=== PATIENT | female | born 1955 | race Caucasian/White ===

== ENCOUNTER 2023-12-12 19:47 | Inpatient (IN) | payer MEDICARE, SELFPAY ==
[2023-12-12] VITALS (11 sets, daily range): BP systolic 149–211; BP diastolic 69–97; BMI 29.1
--- NOTE | 2023-12-12 16:32 | EDRN ---
Dr. Lancaster in room w/ pt at this time.
--- NOTE | 2023-12-12 16:36 | ED.GENMED ---
History of Present Illness
General
Chief Complaint: Chest Pain
Source: patient and family
Exam Limitations: none
Time Seen by Provider: 12/12/23 16:20
Nursing documentation reviewed up to this point in time: agreed with
Travel History
Have you had any contact with someone who has COVID-19?: No
Do you have any symptoms of coronavirus? Fever > 100 degrees, chills, cough, shortness of breath, sore throat, loss of taste or smell, muscle aches, or headache?: No
History of Present Illness
History of Present Illness:
68 female no h/o cad presents with cp since 930 am
described at pressure across her chest into her right arm
no sob
no diaphoresis
no abd pain
has h/o elevated platelets-takes hydroxyurea
cardiology is dr toro
Past History
Past History
ED Past Medical History: None
ED Past Surgical History: None
Phy Exam
General Physical Exam
General Presentation: well appearing
General age: appears stated age
General Skin: warm
General Habitus: normal
General Mental: alert
General Hydration: appears well hydrated
Cardiovascular Exam
Cardiovascular Exam: regular rate/rhythm
Pulmonary Exam
Pulmonary Exam: lungs clear
Gastrointestinal Exam
Gastrointestinal Exam: non tender
Neurological Exam
Neurological Exam: oriented x3
Musculoskeletal Exam
Musculoskeletal Exam: no edema
Skin Exam
Skin Exam: warm/dry
Psychiatric Exam
Psychiatric Exam: normal mood/affect
Scores
Heart Score for Chest Pain Patients
STEMI patient?: No
History: Moderately Suspicious
ECG: Nonspecific Repolarization
Age: >/= 65 years
Risk Factors: 1 or 2 Risk Factors
Troponin: >1 - <3 x Normal Limit
Heart Score for Chest Pain Patients: 6
Heart Score Risk: 20.3% MACE over next 6 weeks
Course
Orders/Labs/Results
Orders:
Orders
12/12/23 13:40
Electrocardiogram (*1) Urgent
Reason for Study: Chest Pain
EKG- Treatment ONCE
12/12/23 16:50
Complete Blood Count/With Diff Urgent
Comprehensive Metabolic Panel Urgent
PTT Urgent
Comment: Obtain baseline before beginning heparin infusion if not already collected
Troponin I Urgent
12/12/23 18:01
Nitroglycerin Sublingual [Nitrostat (Sublingual)] 0.4 mg SL [id number] PRN
12/12/23 18:[address] Non Medication Order As Directed
Physician Order: PTT 6 hours after initial start of Heparin infusion
12/12/23 18:08
CR Chest Portable - 1 View Urgent
Comment:
Reason For Exam: cp
Reason Study Needs to be Portable: Patient Unstable
12/12/23 18:15
Heparin 38311 Units/250 ml 25,000 units in 250 ml IV PER PROTOCOL
Weight to be used for heparin protocol in kilograms (kg):: 72
Protocol:: Cardiac Tx/Acute Coronary
PTT Goal Range to be used:: PTT 73 to 111 seconds
Order type:: Initial
INITIAL Infusion Dose (UNITS/KG/hr) & then follow protocol:: 12 units/kg/hr
Infusion Dose in UNITS/hr & then follow protocol (UNITS/hr):: 850
INFUSION RATE in mL/hr & then follow protocol (mL/hr):: 8.5
PTT less than or equal to 64 seconds:: Increase rate by 200 units/hr (+ 2 mL/hr)
PTT 64.1 to 72.9 seconds:: Increase rate by 100 units/hr (+ 1 mL/hr)
PTT 73 to 111 seconds:: Target Range. No change in rate.
PTT 111.1 to 130.9 seconds:: Decrease rate by 100 units/hr (- 1 mL/hr)
PTT 131 to 199.9 seconds:: HOLD for 1 hr. Then decrease rate by 200 units/hr (- 2 mL/hr)
PTT greater than or equal to 200 seconds:: HOLD for 2 hrs & Notify Provider. Then decrease by 200 units/hr (-
2 mL/hr)
Lab follow-up:: Each change, PTT q6h until 2 consecutive are therapeutic. Then PTT
daily.
12/12/23 18:22
Heparin 4,000 units IV NOW STA
12/12/23 18:27
Heparin 98118 Units/250 ml 25,000 units in 250 ml .ROUTE .STK-MED
12/12/23 21:00
Troponin I Urgent
Abnormal Lab Results
12/12/23 12/12/23
16:50 17:53
MCH 31.1 H pg
(27.0-31.0)
Plt Count 589 H 10^3/uL
(130-400)
MPV 11.0 H fL
(7.4-10.4)
Absolute Neuts (auto) 7.3 H 10^3/uL
(1.4-6.5)
Lymphocytes % 17.0 L %
(20.5-51.1)
Potassium 5.3 H mmol/L
(3.5-5.1)
Glucose 175 H mg/dl
(70-99)
Calcium 10.4 H mg/dl
(8.4-10.2)
Troponin I 0.146 H* ng/ml
POC Glucose 159 H mg/dl
(70-99)
12/12/23 16:50
12/12/23 16:50
Vital Signs
Initial and Last Documented VS:
Initial Vital Signs
Temp Pulse Resp BP Pulse Ox
98.2 F 92 16 178/97 98
12/12/23 13:37 12/12/23 13:37 12/12/23 13:37 12/12/23 13:37 12/12/23 13:37
Last Documented Vital Signs
Temp Pulse Resp BP Pulse Ox
98.2 F 81 20 172/80 97
12/12/23 13:37 12/12/23 18:30 12/12/23 18:30 12/12/23 18:29 12/12/23 18:30
MDM/Problems Addressed
Differential Diagnosis Includes:
acs pancreatitis gerd pe dissection
MDM/Problems Addressed:
chest pain
Chronic conditions affecting care: Other
Acute Exacerbation and/or Progression of Chronic Illness: Other
*Radiology
Radiology exam reviewed: preliminary read by ED provider
*Pulse Oximetry
Patient hypoxic: no
*EKG
Interpreted by ED Provider?: Yes
Interpretation: abnormal
Comparison EKG: no changes
Heart Rate: 78
Rate: normal
Rhythm: sinus
Ischemia: non-specific ST changes
*Bitumen Plant Operator Interpretation
Rate: normal
Interpretation: normal
Heart Rate: 78
Rhythm: sinus
*Critical Care Note
Total Time (30-74mins, 75-104mins- exclusive of procedures): 30
Data Reviewed
Review of Other/Old Records Reveals: Records
Source: patient, records, family, physician and previous hospital records
Further Testing Considered But Not Given:
CT of the chest
Update Note
Update Note:
update
ekg noted
i was able to track down a prior-similar in appearance
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
6:10 PM troponin noted patient still with some pressure will give nitro, patient tells me that she cannot take any NSAIDs including aspirin because it gives her rectal bleeding
Consideration for PE is on the differential as well, apparently she has a hypercoagulable state, though she has allergies to IV contrast
The meantime was started on unfractionated heparin try to cool off with nitrates,
Reviewed with cardiology message sent to hospitalist
ED Attending Note
-
Portions of this chart may have been created with voice recognition software.� Occasional wrong word or��sound alike� substitutions may have occurred due to the inherent limitations of voice recognition software.
Discharge Plan
Departure
Patient Disposition: Admit
Date of Disposition: 12/12/23
Time of Disposition: 18:11
Admit to: IVU
Presentation/result/management discussed w/ accepting MD/DO: Hospitalist
Patient with high blood pressure during this ER visit?: Yes
Condition: Fair
Discharge Problem:
ACS (acute coronary syndrome)
Prescriptions:
No Action
metformin 500 mg Tablet
500 mg PO BID
hydroxyurea 500 mg Capsule
500 mg PO MOTUWETHFR
cetirizine [Aller-Jose] 10 mg Tablet
10 mg PO DAILY
albuterol sulfate [ProAir HFA] 90 mcg/actuation Hfa Aerosol Inhaler
2 puff INHALATION R Q6HPRN PRN (Reason: sob)
Humulin N Pen 100 unit/mL (3 mL) Insulin Pen
16 unit SC QPM
cholecalciferol (vitamin D3) [Vitamin D3] 25 mcg (1,000 unit) Tablet
25 mcg PO DAILY
mesalamine 1.2 gram Tablet,Delayed Release (Dr/Ec)
1.2 g PO BID
insulin glargine [Lantus Solostar U-100 Insulin] 100 unit/mL (3 mL) Insulin Pen
0 unit SC HS
Edarbi 40 mg Tablet
40 mg PO QPM
Flintstones Complete Tablet,Chewable
1 tab PO DAILY
Referrals:
Eugene Bustos MD [Family Provider] -
Interventions
Interventions:
*Risk Screen - Suicide Last Done: 12/12/23 16:50
*General Assessment Last Done: 12/12/23 16:50
*Neglect/Abuse Screening Last Done: 12/12/23 16:50
ED- Fall Risk Assessment Last Done: 12/12/23 16:50
*ED COVID-19 Vaccine History Last Done: 12/12/23 16:50
ED- Cardiac Assessment Last Done: 12/12/23 16:50
[2023-12-12 17:27] LABS: % Basophils 0.8 % (0-2); % Eosinophils 4.3 % (0-6); % Immature Granulocytes 0.4 % (0-0.5); % Monocytes 4.7 % (1.7-9.3); % Neutrophils 72.8 % (42.2-75.2); Absolute Basophils 0.1 10^3/uL (0-0.2); Absolute Eosinophils 0.4 10^3/uL (0-0.7); Absolute Lymphocytes 1.7 10^3/uL (1.2-3.4); Absolute Monocytes 0.5 10^3/uL (0.1-0.6); Absolute Neutrophils 7.3 10^3/uL (1.4-6.5); Hematocrit 40.9 % (37.0-47.0); Hemoglobin 13.7 g/dL (12.0-16.0); Mean Corp Hgb Conc. 33.5 g/dL (33.0-37.0); Mean Corpuscular Hgb 31.1 pg (27.0-31.0); Nucleated Red Blood Cells % 0 %; Platelet Count 589 10^3/uL (130-400); Red Cell Dist. Width 13.1 % (11.5-14.5)
[2023-12-12 17:55] LABS: Glucose - Point of Care 159 mg/dl (70-99)
[2023-12-12 17:57] LABS: ALT (SGPT) 27 U/L (0-35); AST (SGOT) 28 U/L (14-36); Albumin 4.3 g/dl (3.5-5.0); Alkaline Phosphatase 126 U/L (38-126); Blood Urea Nitrogen 17 mg/dl (7-17); Calcium 10.4 mg/dl (8.4-10.2); Carbon Dioxide 28 mmol/L (22-30); Chloride 99 mmol/L (98-107); Estimated Creatinine Clearance 61 ml/min; Glucose 175 mg/dl (70-99); Potassium 5.3 mmol/L (3.5-5.1); Sodium 139 mmol/L (135-145); Total Bilirubin 0.5 mg/dl (0.2-1.3); Total Protein 7.6 g/dl (6.3-8.2); Troponin I 0.146 ng/ml; eGFR > 60.00
--- NOTE | 2023-12-12 18:00 | EDRN ---
Troponin was 0.146. Pt will be moved to room #32 for cardiac monitoring when finished cleaning room. This RN informed Dr. Lancaster of troponin result.
[2023-12-12] MEDS: NITROSTAT (SUBLINGUAL) 0.400000000000000022 MG SL (18:38)
[2023-12-12] MEDS: HEPARIN 4000 UNITS IV (18:43)
[2023-12-12] MEDS: HEPARIN 25000 UNITS/250 ML IV (18:43)
[2023-12-12 18:52] LABS: APTT 32.7 Sec (23.4-35.0)
--- NOTE | 2023-12-12 19:35 | HPS.HSE ---
Addendum entered and electronically signed by Laureano Godinez MD 12/12/23 20:37:
CORRECTION- Patient never required nitro drip. Discontinued order.
Original Note:
Family Physician
-
Family Physician: Eugene Bustos
Chief Complaint
-
chest pain
History of Present Illness
68-year-old female with past medical history of heart murmur, thrombocytosis, clotting disorder, history of DVT with history of IVC filter, diabetes, diabetic retinopathy, asthma, hypertension, ulcerative colitis, presenting with chest pain since
9:30 AM. Pain described as pressure across her chest radiating into her arms bilaterally with numbness and tingling in her right hand and left upper arm. She also has radiation of the pain to her upper back. She denied any nausea or vomiting or
sweating or shortness of breath or abdominal pain.
She denies any history of heart attacks.
She used to be on aspirin but developed significant rectal bleeding so she stopped taking it.
Denies smoking or alcohol or any drug use.
Medical History
Past Medical History
Past Medical History: Reports Other (heart murmur, thrombocytosis, clotting disorder, history of DVT with history of IVC filter, diabetes, diabetic retinopathy, asthma, hypertension, ulcerative colitis)
Past Surgical History: Reports Other (cage in spine/neck, lower spine clam, hysterectomy, umbilical hernia, right knee scope)
Social History
Tobacco: Non-smoker
Alcohol: None
Drug: None
Family History
Family History: Not pertinent
Allergies / Home Medications
Allergies reflects when Allergies were last updated in [facility].
Home Medications with original date entered in [facility]
Allergy/Medication List:
Allergies
Allergy/AdvReac Type Severity Reaction Status Date / Time
acetaminophen [From Tylenol] Allergy Hives Verified 12/12/23 19:07
amlodipine Allergy Swelling Verified 12/12/23 19:07
azilsartan [From Edarbyclor] Allergy Hives Verified 12/12/23 19:07
azithromycin [From Zithromax] Allergy Unknown Verified 12/12/23 19:07
bee venom protein (honey bee) Allergy Anaphylaxis Verified 12/12/23 19:07
chlorthalidone Allergy Hives Verified 12/12/23 19:07
[From Edarbyclor]
codeine Allergy Unknown Verified 12/12/23 19:07
doxycycline Allergy Hives Verified 12/12/23 19:07
erythromycin base Allergy Unknown Verified 12/12/23 19:07
hydrochlorothiazide Allergy Hives Verified 12/12/23 19:07
Iodinated Contrast Media Allergy Unknown Verified 12/12/23 19:07
ketorolac [From Toradol] Allergy HEADACHE Verified 12/12/23 19:07
levofloxacin [From Levaquin] Allergy Swelling Verified 12/12/23 19:07
metoprolol Allergy Hives Verified 12/12/23 19:07
monosodium glutamate Allergy Anaphylaxis Verified 12/12/23 19:07
NSAIDS (Non-Steroidal Allergy Unknown Verified 12/12/23 19:07
Anti-Inflamma
Penicillins Allergy Unknown Verified 12/12/23 19:07
propoxyphene [From Darvon] Allergy Unknown Verified 12/12/23 19:07
ramipril [From Altace] Allergy Unknown Verified 12/12/23 19:07
valsartan [From Diovan] Allergy Hives Verified 12/12/23 19:07
Co-Q 10 Allergy Hives Uncoded 12/12/23 19:07
Home Medications
albuterol sulfate 90 mcg/actuation aerosol inhaler (ProAir HFA) 2 puff inhalation R Q6HPRN PRN sob 12/12/23
azilsartan medoxomil 40 mg tablet (Edarbi) 40 mg PO QPM 12/12/23
cetirizine 10 mg tablet (Aller-Jose) 10 mg PO DAILY 12/12/23
cholecalciferol (vitamin D3) 25 mcg (1,000 unit) tablet (Vitamin D3) 25 mcg PO DAILY 12/12/23
hydroxyurea 500 mg capsule 500 mg PO MOTUWETHFR 12/12/23
insulin NPH isoph U-100 human 100 unit/mL (3 mL) subcutaneous pen 16 unit SC QPM 12/12/23
insulin glargine 100 unit/mL (3 mL) subcutaneous pen (Lantus Solostar U-100 Insulin) 0 unit SC HS 12/12/23
mesalamine 1.2 gram tablet,delayed release 1.2 g PO BID 12/12/23
metformin 500 mg tablet 500 mg PO BID 12/12/23
pediatric multivitamin no.76 (Flintstones Complete chewable tablet) 1 tab PO DAILY 12/12/23
Review of Systems
-
History Source: Patient
A 12 point ROS was completed and negative except as noted: Yes
Constitutional: Reports No Symptoms
EENT: Reports No Symptoms
Respiratory: Reports See HPI
Cardiac: Reports See HPI
Abdomen/GI: Reports No Symptoms
: Reports No Symptoms
Musculoskeletal: Reports No Symptoms
Skin: Reports No Symptoms
Neurological: Reports No Symptoms
Endocrine: Reports No Symptoms
Hematologic/Lymphatic: Reports No Symptoms
Psych: Reports No Symptoms
Physical Exam
Vital Signs
Vital Signs
Temp Pulse Resp BP Pulse Ox
98.2 F 90 18 156/75 95
12/12/23 13:37 12/12/23 18:54 12/12/23 18:54 12/12/23 18:54 12/12/23 18:54
Physical Exam
General: Well Developed, Well Nourished and No Apparent Distress
HEENT: NormoCephalic, Moist mucous membranes and Atraumatic
Respiratory: Clear
Cardiac: S1/S2 and Regular Rhythm; No Murmur or Rub
GI: Soft, Non Tender, Non Distended and Normal Bowel Sounds; No Organomegaly
Rectal: Deferred by Provider
Musculoskeletal: No Clubbing, No Cyanosis and No Edema
Skin: No Rash
Neuro: Nonfocal/grossly intact
Laboratory Results
-
12/12/23 16:50
12/12/23 16:50
Laboratory Results
APTT 32.7 Sec (23.4-35.0) 12/12/23 16:50
Total Bilirubin 0.5 mg/dl (0.2-1.3) 12/12/23 16:50
AST 28 U/L (14-36) 12/12/23 16:50
ALT 27 U/L (0-35) 12/12/23 16:50
Alkaline Phosphatase 126 U/L (38-126) 12/12/23 16:50
Troponin I 0.146 ng/ml H* 12/12/23 16:50
Data Reviewed
-
Lab Data: Labs Reviewed by me
Old Records: Reviewed
Impression/Plan
-
IMPRESSION:
PLAN:
# NSTEMI
-EKG shows normal sinus rhythm, T wave inversions in lead V1
-Troponin of 0.146
-Trend troponins
-Check echo
-Heparin drip
-Nitroglycerin drip
-Hold off on aspirin given history of significant rectal bleeding on aspirin
-Cardiology consulted
History of heart murmur
# Hyperkalemia secondary to ARB
-Hold azilsartan
Essential hypertension
Essential thrombocytosis
-Continue hydroxyurea
History of clotting disorder
History of DVT status post IVC filter
Ulcerative colitis with history of rectal bleeding on aspirin
-Continue mesalamine
Type 2 diabetes
-Continue NPH/Humulin 16 units
-Insulin sliding scale
-Hold metformin
Diabetic retinopathy
Asthma
-Continue inhalers
Full code
DVT prophylaxis�heparin
Cardiac diet
[2023-12-12] MEDS: NON-FORMULARY ITEM 1.19999999999999996 GRAMS PO (20:57)
[2023-12-12 22:58] LABS: Glucose - Point of Care 175 mg/dl (70-99)
[2023-12-13] VITALS (8 sets, daily range): BP systolic 122–186; BP diastolic 54–89; BMI 27.8
[2023-12-13 00:24] LABS: Troponin I 0.477 ng/ml
[2023-12-13 01:24] LABS: % Basophils 0.8 % (0-2); % Immature Granulocytes 0.3 % (0-0.5); % Lymphocytes 29.1 % (20.5-51.1); % Monocytes 6.5 % (1.7-9.3); % Neutrophils 56.3 % (42.2-75.2); Absolute Basophils 0.1 10^3/uL (0-0.2); Absolute Eosinophils 0.5 10^3/uL (0-0.7); Absolute Lymphocytes 2.1 10^3/uL (1.2-3.4); Absolute Monocytes 0.5 10^3/uL (0.1-0.6); Absolute Neutrophils 4.1 10^3/uL (1.4-6.5); Hematocrit 39.2 % (37.0-47.0); Hemoglobin 13.6 g/dL (12.0-16.0); Mean Corp Hgb Conc. 34.7 g/dL (33.0-37.0); Mean Corpuscular Hgb 31.5 pg (27.0-31.0); Mean Corpuscular Volume 90.7 fL (81.0-99.0); Mean Platelet Volume 10.8 fL (7.4-10.4); Nucleated Red Blood Cells % 0 %; Platelet Count 517 10^3/uL (130-400); Red Blood Cell Count 4.32 10^6/uL (4.20-5.40); Red Cell Dist. Width 13.1 % (11.5-14.5); White Blood Cell Count 7.3 10^3/uL (4.8-10.8)
--- NOTE | 2023-12-13 01:35 | PTCARENOTE ---
Late note:Received from the ED at 0015. Heparin infusing at 850 units/hr. Denies any complaints of pain or discomfort.
[2023-12-13 01:37] LABS: ALT (SGPT) 27 U/L (0-35); AST (SGOT) 28 U/L (14-36); Albumin 4.4 g/dl (3.5-5.0); Alkaline Phosphatase 136 U/L (38-126); Blood Urea Nitrogen 19 mg/dl (7-17); Calcium 10.1 mg/dl (8.4-10.2); Carbon Dioxide 27 mmol/L (22-30); Chloride 103 mmol/L (98-107); Estimated Creatinine Clearance 53 ml/min; Glucose 168 mg/dl (70-99); Potassium 4.5 mmol/L (3.5-5.1); Sodium 136 mmol/L (135-145); Total Bilirubin 0.7 mg/dl (0.2-1.3); Total Protein 7.7 g/dl (6.3-8.2); eGFR > 60.00
[2023-12-13 02:08] LABS: Troponin I 0.603 ng/ml
--- NOTE | 2023-12-13 07:18 | CON.CAR ---
Consultation
Consultation Request
Date/Time Consultation Requested: Dec 13 2023
Date/Time Consultation Performed: Dec 13 2023
Requesting Provider: Hospitalist
Performing Provider: Dr Garg
Reason for Consultation: Chest pain
Medical History
-
Chief Complaint: Chest pain
History of Present Illness:
.
Zahida has a history of thrombocytosis, heterozygous for prothrombin gene mutation with previous history of DVT status post [place] filter, hypertension, hyperlipidemia, diabetes who developed chest pain yesterday. It was worse on the left side.
She also had epigastric pain with radiation to the back. Her symptoms started yesterday morning and progressed and worsened into the afternoon. She came into the emergency room for evaluation. Her first troponin was abnormal with subsequent
troponins rising, currently 0.6. She did have some relief with sublingual nitroglycerin.
She states she is been recommended aspirin but has not been able to take it due to rectal bleeding. She had some blood in the stool this morning. She also is already scheduled to see GI. She follows with a terminal gauger Dr. Kunal Mariscal and takes
hydroxyurea for thrombocytosis. She also has a dye allergy to contrast.
She was last seen in the cardiology office August 2023. At that time she had some atypical chest pain and was recommended stress testing but she declined this. Her last echo was June 2023 with EF 55 to 60% and mild LVH with no significant
valvular disease.
Past medical history:
IV contrast dye allergy
Diabetes mellitus
Hyperlipidemia
Hypertension
Heterozygous for prothrombin gene mutation
History DVT 1993 status post [place] filter
Thrombocytosis on hydroxyurea
History of ulcerative colitis
Asthma
Ulnar nerve surgery left
Diabetic retinopathy
Umbilical hernia
Hysterectomy
Right knee arthroplasty
Social History
Tobacco: Non-Smoker
Alcohol: Occasional
Drug: None
Personal:
Living: With Family
Employment: Retired (Retired voice data communications engineer)
Family History
Family History: Early CAD (Father had first IN 40s of heart failure at age 69 and was a heavy smoker)
Allergies / Home Medications
Allergy/AdvReac Type Severity Reaction Status Date / Time
acetaminophen [From Tylenol] Allergy Hives Verified 12/12/23 19:07
amlodipine Allergy Swelling Verified 12/12/23 19:07
azilsartan [From Edarbyclor] Allergy Hives Verified 12/12/23 19:07
azithromycin [From Zithromax] Allergy Unknown Verified 12/12/23 19:07
bee venom protein (honey bee) Allergy Anaphylaxis Verified 12/12/23 19:07
chlorthalidone Allergy Hives Verified 12/12/23 19:07
[From Edarbyclor]
codeine Allergy Unknown Verified 12/12/23 19:07
doxycycline Allergy Hives Verified 12/12/23 19:07
erythromycin base Allergy Unknown Verified 12/12/23 19:07
hydrochlorothiazide Allergy Hives Verified 12/12/23 19:07
Iodinated Contrast Media Allergy Unknown Verified 12/12/23 19:07
ketorolac [From Toradol] Allergy HEADACHE Verified 12/12/23 19:07
levofloxacin [From Levaquin] Allergy Swelling Verified 12/12/23 19:07
metoprolol Allergy Hives Verified 12/12/23 19:07
monosodium glutamate Allergy Anaphylaxis Verified 12/12/23 19:07
NSAIDS (Non-Steroidal Allergy Unknown Verified 12/12/23 19:07
Anti-Inflamma
Penicillins Allergy Unknown Verified 12/12/23 19:07
propoxyphene [From Darvon] Allergy Unknown Verified 12/12/23 19:07
ramipril [From Altace] Allergy Unknown Verified 12/12/23 19:07
valsartan [From Diovan] Allergy Hives Verified 12/12/23 19:07
Co-Q 10 Allergy Hives Uncoded 12/12/23 19:07
Medication Instructions Recorded Confirmed Type
albuterol sulfate 90 mcg/actuation 2 puff inhalation R Q6HPRN PRN sob 12/12/23 12/12/23 History
aerosol inhaler (ProAir HFA)
azilsartan medoxomil 40 mg tablet 40 mg PO QPM 12/12/23 12/12/23 History
(Edarbi)
cetirizine 10 mg tablet (Aller-Jose) 10 mg PO DAILY 12/12/23 12/12/23 History
cholecalciferol (vitamin D3) 25 25 mcg PO DAILY 12/12/23 12/12/23 History
mcg (1,000 unit) tablet (Vitamin
D3)
hydroxyurea 500 mg capsule 500 mg PO MOTUWETHFR 12/12/23 12/12/23 History
insulin NPH isoph U-100 human 100 16 unit SC QPM 12/12/23 12/12/23 History
unit/mL (3 mL) subcutaneous pen
insulin glargine 100 unit/mL (3 0 unit SC HS 12/12/23 12/12/23 History
mL) subcutaneous pen (Lantus
Solostar U-100 Insulin)
mesalamine 1.2 gram tablet,delayed 1.2 g PO BID 12/12/23 12/12/23 History
release
metformin 500 mg tablet 500 mg PO BID 12/12/23 12/12/23 History
pediatric multivitamin no.76 1 tab PO DAILY 12/12/23 12/12/23 History
(Flintstones Complete chewable
tablet)
Review of Systems
-
History Source: Patient
All other systems: Negative unless noted
Cardiac: Chest Pain
Abdomen/GI: Bloody Stools
Physical Exam
Vital Signs
Temp Pulse Resp BP Pulse Ox
97.7 F 89 18 122/65 96
12/13/23 04:47 12/13/23 06:00 12/13/23 04:47 12/13/23 04:40 12/13/23 04:47
Physical examination:
General: No acute distress, AAOX3
Neck: Negative JVD
Heart: Regular, Negative S3 positive S1/S2, Negative S4, No murmur
Lungs: CTA b/l, negative wheezes/rales/rhonchi
Abd: Positive BS, NT/ND, neg rebound/rigidity/guarding
Ext: Negative cyanosis/clubbing/edema
Neuro: nonfocal
Lab Results
12/13/23 01:14
12/13/23 01:14
Troponin I 0.603 ng/ml H* D 12/13/23 01:14
Impression / Plan
-
.
Impression:
Non-STEMI with troponin 0.6 and trending
History IV contrast dye allergy
Blood in stool with history of ulcerative colitis per patient
Diabetes mellitus II
Hyperlipidemia
Hypertension
Thrombocytosis on hydroxyurea
Heterozygous for prothrombin gene mutation
History DVT 1993 status post [place] filter
Asthma
Ulnar nerve surgery left
Diabetic retinopathy
History umbilical hernia
Hysterectomy
Plan:
Start IV heparin. Her EKG does not show ischemic changes.
She declined IV nitroglycerin. She did have some relief with sublingual nitro and has low-level chest discomfort. Start Nitropaste.
Continue to trend troponins until they peak
Check echocardiogram to evaluate for structural heart disease. Her last echo was unremarkable June 2023.
Discussed evaluation of her coronary anatomy with left heart cardiac catheterization. Discussed the procedures and risks. She is agreeable.
Check fasting lipids. LDL goal is at least less than 100. She states she did not tolerate statins or Zetia in the past. She could be considered for PCSK9 inhibitor therapy.
In light of her blood in the stool, would get a GI consultation as she stated she did not tolerate ASA therapy in the past. Would start aspirin therapy and evaluate for further bleeding. She may require dual antiplatelet therapy pending her
cardiac catheterization. She states she had ulcerative colitis and takes mesalamine which she states does not help her that much.
Consult hematology given her history of thrombocytosis and prothrombin gene mutation. This was also her request.
Diabetes management as per primary service.
Further recommendations are to follow pending clinical course and workday consultant input
Data Reviewed
-
EKG: Tracing Personally Visualized and interpreted
Labs: Labs Reviewed by me
Old Records: Reviewed
[2023-12-13] MEDS: THERAGRAN 1 TABLET PO (08:11)
[2023-12-13] MEDS: VITAMIN D3 (cholecalciferol) 25 MCG PO (08:11)
[2023-12-13] MEDS: ZYRTEC 10 MG PO (08:12)
[2023-12-13] MEDS: NON-FORMULARY ITEM 1.19999999999999996 GRAMS PO ×2 (08:12→21:19)
[2023-12-13] MEDS: NITRO-BID 1 INCH TOPICAL (08:16)
[2023-12-13 08:36] LABS: Glucose - Point of Care 173 mg/dl (70-99)
[2023-12-13] MEDS: HYDREA 500 MG PO (08:47)
--- NOTE | 2023-12-13 08:49 | CON.GI ---
Addendum entered and electronically signed by Clarice Odonnell MD 12/13/23 16:35:
I saw and examined the patient.
The [employer] OFFICER or PA's note was reviewed and I agree with the note.
Comment: 68-year-old female with history of what appears to be left-sided ulcerative colitis diagnosed in February 2023 when she presented with some diarrhea and rectal bleeding by Dr. Scott at [place], currently maintained on mesalamine tablets 1.2
g twice a day presenting with chest pain and elevated troponin with abnormal EKG suggesting non-ST elevation PA. Given history of ulcerative colitis, GI consult called and to evaluate for risk of bleeding with possible antiplatelet/anticoagulation.
No recent increased symptoms, currently reports 2-3 formed and small bowel movements sometimes with some mucus and blood, has not taken mesalamine enemas for almost more than a month, she only took 10 days prior to that and consistently taking
mesalamine tablets. No flareup requiring hospital visit. No other active GI symptoms. Elevated fecal calprotectin in the 2000 range in October 2023. Flexible sigmoidoscopy February 2023 as per patient with left-sided colitis and prior to that
couple of years ago her for colonoscopy and had polyps removed. She has been getting colonoscopies every 3 years with family history of colon cancer in her mother. She also has history of DVT, IVC filter placement, not on anticoagulation.
-History of ulcerative colitis without any active flare at this time though recent mucus and blood with bowel movements without significant diarrhea.
No evidence of anemia
Continue mesalamine 1.2 g oral tablet twice a day and will add mesalamine enema every night.
Agree with CRP, ESR, fecal calprotectin and also celiac panel given questionable history of celiac disease.
Patient currently on IV heparin drip without any significant increase in bleeding.
Continue to monitor H&H.
Okay to continue cardiology evaluation, if there is any significant active bleeding, we could use steroids to treat flare ups.
She has appointment with our office, Dr. Contreras coming up in December. Suggested keeping on the appointment. Eventual colonoscopy once she is able to from a cardiac standpoint as an outpatient.
Will follow
Original Note:
Consultation
-
Date/Time Consultation Requested: 12/13/23
Date/Time Consultation Performed: 12/13/23 @ 09:30
Requesting Provider: Dr. Garcia
Performing Provider: TIAN Khan; Dr. Odonnell
Reason for Consultation: rectal bleeding eval, pre-cardiac cath
Medical History
Chief Complaint / HPI
Chief Complaint: chest pain
History of Present Illness:
The pt is a pleasant 68 yo female with a PMH significant for newly diagnosed Ulcerative colitis on oral mesalamine, thrombocytosis on hydroxyurea followed by hematology Dr. Mariscal, hx DVT x2 with placement of IVC filter, HTN, HLD, DM2, asthma,
heterozygous prothrombin gene previously on ASA but self discontinued due to rectal bleeding, who presented to the ER with complaints of chest pain. On admission noted with elevated troponins and an abnormal EKG showing T wave changes consistent
with NSTEMI. She had received SL nitro and symptoms improved. She was started on IV heparin pending eventual cardiac catheterization. We are being asked to evaluate for risk of bleeding with need for possible long-term antiplatelet therapy. The
patient reports that she had been having bloody stools intermittently the last year and underwent evaluation with Dr. Scott who is her gastrointestinal doctor out of [place]. She had previously had colonoscopies in which she had benign polyps
removed, but had not been told she had any inflammatory bowel disease in the past. She underwent a sigmoidoscopy in February of last year in which she was told she had a 'raw intestine with possible ulcers' consistent with ulcerative colitis. She had
been subsequently started on mesalamine 2.4 mg daily which she has been on since that time. She was advised to also use mesalamine enemas as well which did improve her rectal bleeding. She also notes that she had stopped her aspirin which she has
been off since May which also helped with the bleeding as well, although this was not recommended by her class b truck driver Dr. Mariscal as she is followed by him due to her history of thrombocytosis and heterozygous prothrombin gene mutation. She is on
hydroxyurea for this thrombocytosis. She notes that she does have chronic abdominal symptoms, with occasional cramping which is associated with bowel movements. She notes that she does have intermittent bleeding usually with only mild bleeding.
She does note intermittent constipation but mostly has formed small bowel movements. She can have several bowel movements in a day depending on the day. She does not take medications for constipation. She notes that her symptoms are particularly
sensitive to her diet, and has been on a low FODMAP diet as advised by her GI physician. She does also note she takes daily fiber supplements with Benefiber or Citrucel. She notes a history of internal hemorrhoids in which she reports she had
banding in the past. She also notes that she was told she had celiac disease upon biopsy in the past as well but is unclear if this is a confirmed diagnosis. She reports that her symptoms have been improved since being off of aspirin and currently
denies any bleeding at this time. She reports family history significant for mother who had colon cancer in her 60s. She denies any significant alcohol use. She otherwise denies any unintentional weight loss, significant reflux, vomiting, nausea,
dysphagia, odynophagia, melena, hematemesis, fevers, or chills. Minimal records available in our outpatient [facility] system but noted with a fecal calprotectin in October of this past year that was 2460. Routine labs on admission with no significant
anemia with a hemoglobin of 13.6. Noted with rising troponin levels otherwise no significant lab findings. She is NPO pending further cardiac work-up.
Past Medical History
Past Medical History: Asthma, HTN, Hypercholesterolemia and Other (Thrombocytosis on hydroxyurea, heterozygous prothrombin gene mutation, history of DVT x 2 with filter placement, history of newly diagnosed ulcerative colitis in February 2023, ?celiac
disease)
Past Surgical History: Gynecological (Hysterectomy), Orthopedic (Right knee arthroscopy x 2) and Other (Ulnar nerve surgery, umbilical hernia)
Social History
Tobacco: Non-Smoker
Alcohol: None
Drug: None
Personal:
Living: With Family
Family History
Family History: Other (Mother who had colon cancer in her 60s)
Allergies / Home Medications
Allergy/AdvReac Type Severity Reaction Status Date / Time
acetaminophen [From Tylenol] Allergy Hives Verified 12/12/23 19:07
amlodipine Allergy Swelling Verified 12/12/23 19:07
azilsartan [From Edarbyclor] Allergy Hives Verified 12/12/23 19:07
azithromycin [From Zithromax] Allergy Unknown Verified 12/12/23 19:07
bee venom protein (honey bee) Allergy Anaphylaxis Verified 12/12/23 19:07
chlorthalidone Allergy Hives Verified 12/12/23 19:07
[From Edarbyclor]
codeine Allergy Unknown Verified 12/12/23 19:07
doxycycline Allergy Hives Verified 12/12/23 19:07
erythromycin base Allergy Unknown Verified 12/12/23 19:07
hydrochlorothiazide Allergy Hives Verified 12/12/23 19:07
Iodinated Contrast Media Allergy Unknown Verified 12/12/23 19:07
ketorolac [From Toradol] Allergy HEADACHE Verified 12/12/23 19:07
levofloxacin [From Levaquin] Allergy Swelling Verified 12/12/23 19:07
metoprolol Allergy Hives Verified 12/12/23 19:07
monosodium glutamate Allergy Anaphylaxis Verified 12/12/23 19:07
NSAIDS (Non-Steroidal Allergy Unknown Verified 12/12/23 19:07
Anti-Inflamma
Penicillins Allergy Unknown Verified 12/12/23 19:07
propoxyphene [From Darvon] Allergy Unknown Verified 12/12/23 19:07
ramipril [From Altace] Allergy Unknown Verified 12/12/23 19:07
valsartan [From Diovan] Allergy Hives Verified 12/12/23 19:07
Co-Q 10 Allergy Hives Uncoded 12/12/23 19:07
Medication Instructions Recorded
albuterol sulfate 90 mcg/actuation 2 puff inhalation R Q6HPRN PRN sob 12/12/23
aerosol inhaler (ProAir HFA)
azilsartan medoxomil 40 mg tablet 40 mg PO QPM 12/12/23
(Edarbi)
cetirizine 10 mg tablet (Aller-Jose) 10 mg PO DAILY 12/12/23
cholecalciferol (vitamin D3) 25 25 mcg PO DAILY 12/12/23
mcg (1,000 unit) tablet (Vitamin
D3)
hydroxyurea 500 mg capsule 500 mg PO MOTUWETHFR 12/12/23
insulin NPH isoph U-100 human 100 16 unit SC QPM 12/12/23
unit/mL (3 mL) subcutaneous pen
insulin glargine 100 unit/mL (3 0 unit SC HS 12/12/23
mL) subcutaneous pen (Lantus
Solostar U-100 Insulin)
mesalamine 1.2 gram tablet,delayed 1.2 g PO BID 12/12/23
release
metformin 500 mg tablet 500 mg PO BID 12/12/23
pediatric multivitamin no.76 1 tab PO DAILY 12/12/23
(Flintstones Complete chewable
tablet)
Review of Systems
-
History Source: Patient
Constitutional: Reports No Symptoms
EENT: Reports No Symptoms
Respiratory: Reports No Symptoms
Cardiac: Reports Chest Pain
Abdomen/GI: Reports Bloody Stools
: Reports No Symptoms
Musculoskeletal: Reports No Symptoms
Skin: Reports No Symptoms
Neurological: Reports No Symptoms
Vital Signs
Temp Pulse Resp BP Pulse Ox
97.8 F 96 18 123/71 96
12/13/23 07:59 12/13/23 08:16 12/13/23 08:03 12/13/23 08:16 12/13/23 08:05
Physical Exam
Exam
General: Well Developed, Well Nourished, No Apparent Distress and Comfortable
HEENT: Normocephalic, Anicteric and Atraumatic
Respiratory: Clear
Cardiac: S1/S2 and Regular Rhythm
Breast: Deferred by me
GI: Soft, Non Tender, Non Distended and Normal Bowel Sounds
Musculoskeletal: No Edema
Skin: Warm and Dry
Neuro: Awake and Alert
Psych: Calm
Results
WBC 7.3 10^3/uL (4.8-10.8) 12/13/23 01:14
Hgb 13.6 g/dL (12.0-16.0) 12/13/23 01:14
Hct 39.2 % (37.0-47.0) 12/13/23 01:14
MCV 90.7 fL (81.0-99.0) 12/13/23 01:14
Plt Count 517 10^3/uL (130-400) H 12/13/23 01:14
Absolute Neuts (auto) 4.1 10^3/uL (1.4-6.5) 12/13/23 01:14
APTT 40.0 Sec (23.4-35.0) H 12/13/23 01:14
Sodium 136 mmol/L (135-145) 12/13/23 01:14
Potassium 4.5 mmol/L (3.5-5.1) 12/13/23 01:14
Chloride 103 mmol/L (98-107) 12/13/23 01:14
Carbon Dioxide 27 mmol/L (22-30) 12/13/23 01:14
BUN 19 mg/dl (7-17) H 12/13/23 01:14
Creatinine 0.9 mg/dL (0.6-1.0) 12/13/23 01:14
Calcium 10.1 mg/dl (8.4-10.2) 12/13/23 01:14
Total Bilirubin 0.7 mg/dl (0.2-1.3) 12/13/23 01:14
AST 28 U/L (14-36) 12/13/23 01:14
ALT 27 U/L (0-35) 12/13/23 01:14
Alkaline Phosphatase 136 U/L (38-126) H 12/13/23 01:14
Diagnostic Image Results:
12/12/23 CXR: Normal
Prior GI Procedures:
EGD: within the last 2 years at [place], ?celiac diagnosis per pt (report not available to me)
Colonoscopy: within the last 2 years at [place], hx colon polyps per pt (report not available to me)
Flex sig February 2023 per pt, dx with UC 'colon ulceration and inflammation' (report not available to me)
Assessment / Plan
-
The pt is a pleasant 68 yo female with a PMH significant for newly diagnosed Ulcerative colitis on oral mesalamine, thrombocytosis on hydroxyurea followed by hematology Dr. Mariscal, hx DVT x2 with placement of IVC filter, HTN, HLD, DM2, asthma,
heterozygous prothrombin gene previously on ASA but self discontinued due to rectal bleeding, who presented to the ER with complaints of chest pain. Noted with elevated troponins and EKG changes consistent with NSTEMI. Improved chest pain with
sublingual nitro. Currently in no acute distress with no complaints of pain. She notes being recently diagnosed with ulcerative colitis last February with flex sig with Dr. Scott out of [place]. Currently with no significant bleeding but does
report prior mild bleeding with aspirin therapy. Recent fecal calprotectin greater than 2000 indicating likely unmanaged IBD. No significant anemia.
Problem list:
-Intermittent rectal bleeding, hx recently dx UC on mesalamine
-?celiac disease
-NSTEMI
-Thrombocytosis on hydroxyurea following hematology
-Heterozygous prothrombin gene mutation
-History of DVT
-History of rectal bleeding on aspirin
-Elevated troponins
Other pertinent medical history:
-Hypertension
-Type 2 diabetes
-Asthma
-Hyperlipidemia
Recommendations:
-Etiology of intermittent rectal bleeding likely secondary to unmanaged ?ulcerative colitis with recent fecal calprotectin above 2000 v other. Records unavailable at this time but will request them to review her endoscopic evaluation and prior
workup.
-Will review case with Dr. Odonnell but did discuss with the patient risk versus benefits of being on aspirin or other antiplatelet therapy with ulcerative colitis as she likely will need this from a cardiac standpoint. There is increased risk of GI
bleeding with antiplatelet therapy with a dx of ulcerative colitis.
-Would continue oral mesalamine for now but may need to increase dose or adjust therapy based on her symptoms/further work-up.
-May need endoscopic evaluation to determine therapy escalation/significance of inflammation. Will review timing with Dr. Odonnell/cardiology.
-No anemia or reported rectal bleeding to suggest active bleeding. Monitor stools/for bleeding.
-She has an appointment with Dr. Contreras outpatient which she should keep
-Check celiac panel, CRP, ESR, fecal calpro
-NPO as per cardiology but when eating should be on gluten free, low residue diet
-Will follow
Data Reviewed
-
Old Records: Reviewed
-
-
Thank you for consultation and allowing me to participate in the patient's care. Please call the ton container filler GI physician during the after hours with any questions or concerns.
--- NOTE | 2023-12-13 08:50 | CON.ONC ---
Impression
Impression
Impression:
Non-STEMI with elevated troponin
Essential Thrombocytosis on hydroxyurea
Heterozygous for prothrombin gene mutation
History DVT x 2, and 1992 status post Eamon filter
Ulcerative colitis per patient
Diabetes mellitus II
Hyperlipidemia
Hypertension
Asthma
Plan
Plan
Patient is currently on IV heparin. For cardiac catheterization.
Regarding essential thrombocytosis, continue hydroxyurea to maintain platelet count around 300,000 - 600,000. Currently she is taking hydroxyurea 500 mg daily -.
Ideally she would take low-dose aspirin although the patient has declined because of rectal bleeding. GI has been consulted. She believes rectal bleeding is related to underlying ulcerative colitis.
Obviously, if she has cardiac stenting, she may require antiplatelet therapy to prevent IntraStent thrombosis.
Regarding full therapeutic anticoagulation with history of heterozygote prothrombin 01169 gene mutation, this is not an absolute indication for anticoagulation and she has done well 17 years. At this point, particular with history of rectal
bleeding, I would not start anticoagulation simply based on this genetic diagnosis even though she has been on anticoagulation for almost 20 years and her previous multimedia developer was uncomfortable and her stopping it. The anticoagulation was stopped
AGAINST MEDICAL ADVICE at that time because of skin thinning.
For now we will standby and follow with you. Continue to monitor CBC with attention to platelet count on hydroxyurea. Await cardiac catheterization and decisions regarding stents.
Patient History
History of Present Illness
Heme Consultation
Requesting Provider: Cardiology Dr. Garg
Performing Provider: Hematology Dr Wilder
Reason for Consultation: ET on hydroxyurea and Prothrombin 25928 gene mutation
CC: Chest pain
HPI: Patient is a 68-year-old female who follows with Dr. Brett Mariscal at [facility] with history of essential thrombocytosis on hydroxyurea 500 mg daily. 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
after her 3rd COVID Moderna vaccination. Her platelet count is maintained approximately 250,000 - 350,000 although she states in October her platelet count kelechi to over 700,000. She also has history of prothrombin 57444 heterozygous gene mutation
and has history of DVT on 2 separate occasions back in the . She was treated with anticoagulation for almost 20 years until she stopped Coumadin 2006 because of issues with skin thinning. This was AGAINST MEDICAL ADVICE of her multimedia developer
(previously Dr. Sellers). An IVC filter was placed in 2006. Since that time, she has not had any DVT or PE despite not being on anticoagulation. She was supposed to be taking aspirin but also was noncompliant with aspirin because it causes rectal
bleeding. She has underlying ulcerative colitis. She attributes the aspirin associated rectal bleeding as a complication of having ulcerative colitis.
Patient was admitted with chest pain and suspected acute coronary syndrome with non-STEMI CA. We are asked to see her because of the potential need for aspirin and regarding the thrombocytosis.
Past-Medical/Surgical History
PMH:
IV contrast dye allergy
Diabetes mellitus
Hyperlipidemia
Hypertension
Heterozygous prothrombin gene mutation
History DVT x 2 and 1992 status post Eamon filter
MPL + Essential Thrombocytosis on hydroxyurea
Ulcerative colitis ? - per patient
*Not on aspirin because of rectal bleeding
Asthma
PSH:
Ulnar nerve surgery left
Diabetic retinopathy
Umbilical hernia
Hysterectomy
Right knee arthroplasty
Social History
Tobacco: Non-Smoker
Alcohol: Occasional
Drug: None
Personal:
Living: With Family
Employment: Retired (Retired electrical power engineer)
Family History: Early CAD (Father had first CA 40s of heart failure at age 69 and was a heavy smoker)
Multiple drug allergies. List attached.
Patient Medication
Medication Instructions Recorded Confirmed Last Taken Type
albuterol sulfate 90 mcg/actuation 2 puff inhalation R Q6HPRN PRN sob 12/12/23 12/12/23 Unknown History
aerosol inhaler (ProAir HFA)
azilsartan medoxomil 40 mg tablet 40 mg PO QPM 12/12/23 12/12/23 12/11/23 History
(Edarbi)
cetirizine 10 mg tablet (Aller-Jose) 10 mg PO DAILY 12/12/23 12/12/23 12/12/23 History
cholecalciferol (vitamin D3) 25 25 mcg PO DAILY 12/12/23 12/12/23 12/12/23 History
mcg (1,000 unit) tablet (Vitamin
D3)
hydroxyurea 500 mg capsule 500 mg PO MOTUWETHFR 12/12/23 12/12/23 12/12/23 History
insulin NPH isoph U-100 human 100 16 unit SC QPM 12/12/23 12/12/23 12/11/23 History
unit/mL (3 mL) subcutaneous pen
insulin glargine 100 unit/mL (3 0 unit SC HS 12/12/23 12/12/23 Unknown History
mL) subcutaneous pen (Lantus
Solostar U-100 Insulin)
mesalamine 1.2 gram tablet,delayed 1.2 g PO BID 12/12/23 12/12/23 12/12/23 History
release
metformin 500 mg tablet 500 mg PO BID 12/12/23 12/12/23 12/12/23 History
pediatric multivitamin no.76 1 tab PO DAILY 12/12/23 12/12/23 12/12/23 History
(Flintstones Complete chewable
tablet)
Active Medications
Generic Name Dose Route Start Last Admin
Trade Name Freq PRN Reason Stop Dose Admin
Albuterol 2 puff 12/12/23 20:04
Albuterol Hfa [90 Mcg/Dose] Inhaler INH 01/09/24 20:03
R Q6HPRN PRN
sob
Protocol
Cetirizine HCl 10 mg 12/13/23 08:00 12/13/23 08:12
Cetirizine Hcl 10 Mg Tablet PO 01/10/24 07:59 10 mg
DAILY AVERY Administration
Cholecalciferol 25 mcg 12/13/23 08:00 12/13/23 08:11
Cholecalciferol (Vitamin D3) 25 Mcg Tablet (1,000 Units) PO 01/10/24 07:59 25 mcg
DAILY AVERY Administration
Dextrose 12.5 grams 12/12/23 20:04
Dextrose 50% (0.5 Grams/Ml) 50 Ml Syringe IV 01/09/24 20:03
[id number] PRN
hypoglycemia
Protocol
Glucagon 1 mg 12/12/23 20:04
Glucagon 1 Mg Vial IM 01/09/24 20:03
PRN PRN
hypoglycemia
Protocol
Hydroxyurea 500 mg 12/13/23 08:00 12/13/23 08:47
Hydroxyurea 500 Mg Capsule PO 01/10/24 07:59 500 mg
[id number]@0800 AVERY Administration
Heparin Sodium 25,000 units in 250 mls @ 0 mls/hr 12/12/23 18:15 12/12/23 18:43
Heparin 29012 Units/250 Ml IV 250 mls
PER PROTOCOL AVERY Administration
Protocol
Per Protocol
Insulin Aspart 0 units 12/13/23 07:30
Insulin Aspart Low Resistance 300 Units/3 Ml Pen.Injctr SC 01/10/24 07:29
AC AVERY
Protocol
Insulin Human NPH 16 units 12/13/23 18:00
Insulin Nph (100 Units/Ml) 3 Ml Kwikpen SC 01/10/24 17:59
QPM AEVRY
Multivitamins Therapeutic 1 tablet 12/13/23 08:00 12/13/23 08:11
Multivitamin Tablet PO 01/10/24 07:59 1 tablet
DAILY AVERY Administration
Nitroglycerin 0.4 mg 12/12/23 18:01 12/12/23 18:38
Nitroglycerin 0.4 Mg Sl Tablet SL 01/09/24 18:00 0.4 mg
[id number] PRN Administration
ANGINA
Mesalamine 1.2 Gram 0 grams 12/12/23 20:04 12/13/23 08:12
Tablet,Delayed PO 01/09/24 20:03 1.2 grams
Release (Dr/Ec)) BID AVERY Administration
Sodium Chloride 0 flush 12/12/23 21:00
Sodium Chloride 0.9% (Flush) Syringe IV 01/09/24 20:59
PER PROTOCOL AVERY
Review of Systems
-
Cardiac: Reports Chest Pain
GI: Reports Bloody Stools
Physical Exam
-
General: Well Developed and Well Nourished
HEENT: Negative Jaundice
Cardiology: S1 and S2
Pulmonary: Clear
GI: Soft
Extremities: No C/C/E
Neurology: Non Focal
Skin: Warm
Labs
Lab Results
WBC 7.3 10^3/uL (4.8-10.8) 12/13/23 01:14
RBC 4.32 10^6/uL (4.20-5.40) 12/13/23 01:14
Hgb 13.6 g/dL (12.0-16.0) 12/13/23 01:14
Hct 39.2 % (37.0-47.0) 12/13/23 01:14
MCV 90.7 fL (81.0-99.0) 12/13/23 01:14
MCH 31.5 pg (27.0-31.0) H 12/13/23 01:14
MCHC 34.7 g/dL (33.0-37.0) 12/13/23 01:14
RDW 13.1 % (11.5-14.5) 12/13/23 01:14
Plt Count 517 10^3/uL (130-400) H 12/13/23 01:14
MPV 10.8 fL (7.4-10.4) H 12/13/23 01:14
Abs Immat Gran (auto) 0.0 10^3/uL (0-0.05) 12/13/23 01:14
Absolute Neuts (auto) 4.1 10^3/uL (1.4-6.5) 12/13/23 01:14
Absolute Lymphs (auto) 2.1 10^3/uL (1.2-3.4) 12/13/23 01:14
Absolute Monos (auto) 0.5 10^3/uL (0.1-0.6) 12/13/23 01:14
Absolute Eos (auto) 0.5 10^3/uL (0-0.7) 12/13/23 01:14
Absolute Basos (auto) 0.1 10^3/uL (0-0.2) 12/13/23 01:14
Immature Gran % 0.3 % (0-0.5) 12/13/23 01:14
Neutrophils % 56.3 % (42.2-75.2) 12/13/23 01:14
Lymphocytes % 29.1 % (20.5-51.1) 12/13/23 01:14
Monocytes % 6.5 % (1.7-9.3) 12/13/23 01:14
Eosinophils % 7.0 % (0-6) H 12/13/23 01:14
Basophils % 0.8 % (0-2) 12/13/23 01:14
Creatinine 0.9 mg/dL (0.6-1.0) 12/13/23 01:14
Vital Signs
Vital Signs
Temp Pulse Resp BP Pulse Ox
97.8 F 96 18 123/71 96
12/13/23 07:59 12/13/23 08:16 12/13/23 08:03 12/13/23 08:16 12/13/23 08:05
[2023-12-13 08:53] LABS: APTT 60.8 Sec (23.4-35.0)
--- NOTE | 2023-12-13 08:58 | W.PN.HOSP.TC ---
Today's Communication/Plan
-
see A/P
Assessment / Plan
Assessment / Plan
HPI: 68-year-old female with past medical history of heart murmur, thrombocytosis, clotting disorder, history of DVT with history of IVC filter, diabetes, diabetic retinopathy, asthma, hypertension, ulcerative colitis, presented with chest pain
since 9:30 AM on DOA. Pain described as pressure across her chest radiating into her arms bilaterally with numbness and tingling in her right hand and left upper arm.�She also has radiation of the pain to her upper back.�She denied any nausea or
vomiting or sweating or shortness of breath or abdominal pain.
She denies any history of heart attacks. She used to be on aspirin but developed significant rectal bleeding so she stopped taking it. Denies smoking or alcohol or any drug use.
A/P:
# Chest pain likely ACS with NSTEMI
# History of heart murmur
EKG shows normal sinus rhythm, T wave inversions in lead V1
Troponin of 0.146 -> 0.477 -> 0.603, cont to trend troponin
Check echo
Cont Heparin drip
Off Nitroglycerin drip, cont SL Nitro
Cardiology planning for cardiac cath, timing TBD (after GI and heme eval)
# h/o severe GIB
# Ulcerative colitis with history of rectal bleeding on aspirin
Continue mesalamine
ASA started by Card
GI CS prior to cardiac cath
# Essential thrombocytosis
# History of clotting disorder
# History of DVT status post IVC filter
Continue hydroxyurea
Heme CS prior to cardiac cath
# Mild Hyperkalemia secondary to ARB
Hold azilsartan
# Essential hypertension
# Type 2 diabetes
# Diabetic retinopathy
Follow A1C
Pt states that she takes insulin NPH and Lantus based on sliding scale, has been doing for years per the instruction of her toy packer
Given she will be NPO, hold INFORMATION STRATEGIST long acting insulin and use Aspart Insulin sliding scale for now
Hold metformin
# Asthma, mild intermittent
Continue inhalers
Full code
DVT prophylaxis�heparin
UNIQUE Cardiology team
UNIQUE RN
Anticipated Discharge: > 48 hours
Subjective/Interval History
-
Date of Service: December 13, 2023
Objective Data
-
Labs:
Laboratory Results
12/13/23 12/13/23
01:14 08:36
WBC 7.3
Hgb 13.6
Hct 39.2
Plt Count 517 H
APTT 40.0 H Pending
Sodium 136
Potassium 4.5
Chloride 103
Carbon Dioxide 27
BUN 19 H
Creatinine 0.9
Glucose 168 H
Calcium 10.1
Total Bilirubin 0.7
AST 28
ALT 27
Alkaline Phosphatase 136 H
Vital Signs:
Vital Signs
Temp Pulse Resp BP Pulse Ox
36.6 C 96 18 123/71 96
12/13/23 07:59 12/13/23 08:16 12/13/23 08:03 12/13/23 08:16 12/13/23 08:05
Review of Systems
-
All other systems: Reviewed and negative
Physical Exam
-
General: Well Developed, Well Nourished, No Apparent Distress, Comfortable and Conversant; Negative Respiratory Distress
HEENT: Normocephalic, Atraumatic, Nose Appears Normal and Ears Appear Normal; Negative Oxygen
Respiratory: Clear to Auscultation and Non Labored Respirations; Negative Accessory Resp Muscle Use
Cardiac: Regular Rhythm and S1/S2
GI: Soft, Nontender, Nondistended and Normal Bowel Sounds
Skin: Warm and Dry
Neuro: Awake, Alert, Oriented, AO x 3 and Nonfocal/Grossly Intact
Psych: Calm and Intact Judgement/Insight
Data Reviewed
-
Labs: Labs Reviewed by
[2023-12-13 09:14] LABS: Troponin I 0.701 ng/ml
[2023-12-13 09:33] LABS: Glycohemoglobin (HgbA1c) 7.6 % (4.0-5.6)
[2023-12-13] MEDS: NOVOLOG FLEXPEN-LOW RESISTANCE 1 UNITS SC ×2 (09:37→17:15)
[2023-12-13 09:49] LABS: HDL Cholesterol 40 mg/dl; LDL Cholesterol, Calculated 112 mg/dl; Total Cholesterol 186 mg/dl (50-199); Triglyceride 172 mg/dl (10-149); Very Low Density Lipoprotein 34 mg/dl (0-30)
--- NOTE | 2023-12-13 10:30 | CM ---
Reviewed chart. Met with Mr and Mrs. Severino to review discharge plans. She states prior to admission she resides with her spouse and 24 year old granddaughter in a two story home with two steps to enter. She states she has a full flight of steps to
get to bedroom/full bathroom. She states she has a powder room on the first floor. She states prior to admission she was independent with ambulation and adls. She states she does not have any DME in the home. She states she has a prescription plan
and uses mail order and [facility]. Medical work-up in progress. The discharge plan is to return home with her spouse and granddaughter when medically stable.
--- NOTE | 2023-12-13 11:16 | PTCARENOTE ---
Rec'd pt this shift awake and alert in bed. Pt NSR on monitor, denies CP or SOB. AM meds given. PTT and Troponin sent. Heparin infusing at 1250 units/hr at this time. See worklist for VS/I and O and assessments.
[2023-12-13 12:01] LABS: Glucose - Point of Care 154 mg/dl (70-99)
[2023-12-13] MEDS: NOVOLOG FLEXPEN-LOW RESISTANCE SC (13:36)
--- NOTE | 2023-12-13 13:38 | W.PN.UPDATE ---
Update Note
Progress Note Update
Talked with patient and her in the room. Explained rising Troponin and medical therapy thus far including Heparin gtt. She is pain free. Patient was seen by Heme and GI, notes reviewed. Patient feels that she is confident that the GI team
can work around her previous blood in stools problems if she needs to start aspirin. Patient is willing to start chewable aspirin 81 mg daily now. Will watch stools and H&H. Patient's cath will be deferred to tomorrow to watch for tolerance of
aspirin. Echo ordered and pending.
[2023-12-13] MEDS: LOW STRENGTH ASPIRIN 81 MG PO (13:54)
[2023-12-13 16:07] LABS: Erythrocyte Sed Rate 23 mm/hour (0-20)
[2023-12-13 16:23] LABS: Troponin I 0.504 ng/ml
[2023-12-13] MEDS: HEPARIN 25000 UNITS/250 ML IV (17:07)
[2023-12-13 17:19] LABS: Glucose - Point of Care 194 mg/dl (70-99)
[2023-12-13 17:22] LABS: APTT 83.4 Sec (23.4-35.0)
[2023-12-13 20:40] LABS: APTT 79.8 Sec (23.4-35.0)
[2023-12-13 21:48] LABS: Glucose - Point of Care 144 mg/dl (70-99)
[2023-12-13] MEDS: ROWASA ENEMA RECTAL (22:28)
[2023-12-13 23:07] LABS: APTT 89.8 Sec (23.4-35.0)
[2023-12-14] VITALS (11 sets, daily range): BP systolic 102–162; BP diastolic 67–90; BMI 27.9
[2023-12-14 00:12] LABS: IgA 184 mg/dl (70-400)
[2023-12-14 06:01] LABS: Hematocrit 36.4 % (37.0-47.0); Hemoglobin 12.4 g/dL (12.0-16.0); Mean Corp Hgb Conc. 34.1 g/dL (33.0-37.0); Mean Corpuscular Hgb 31.2 pg (27.0-31.0); Mean Corpuscular Volume 91.7 fL (81.0-99.0); Mean Platelet Volume 10.9 fL (7.4-10.4); Platelet Count 447 10^3/uL (130-400); Red Blood Cell Count 3.97 10^6/uL (4.20-5.40); White Blood Cell Count 6.7 10^3/uL (4.8-10.8)
[2023-12-14 06:12] LABS: APTT 81.3 Sec (23.4-35.0)
[2023-12-14 06:25] LABS: Blood Urea Nitrogen 21 mg/dl (7-17); Calcium 9.3 mg/dl (8.4-10.2); Carbon Dioxide 27 mmol/L (22-30); Chloride 106 mmol/L (98-107); Estimated Creatinine Clearance 53 ml/min; Glucose 174 mg/dl (70-99); Magnesium 2.2 mg/dl (1.6-2.3); Potassium 4.7 mmol/L (3.5-5.1); Sodium 136 mmol/L (135-145); eGFR > 60.00
--- NOTE | 2023-12-14 07:54 | W.PN.HOSP.TC ---
Today's Communication/Plan
-
see A/P
Assessment / Plan
Assessment / Plan
HPI: 68-year-old female with past medical history of heart murmur, thrombocytosis, clotting disorder, history of DVT with history of IVC filter, diabetes, diabetic retinopathy, asthma, hypertension, ulcerative colitis, presented with chest pain
since 9:30 AM on DOA. Pain described as pressure across her chest radiating into her arms bilaterally with numbness and tingling in her right hand and left upper arm.�She also has radiation of the pain to her upper back.�She denied any nausea or
vomiting or sweating or shortness of breath or abdominal pain.
She denies any history of heart attacks. She used to be on aspirin but developed significant rectal bleeding so she stopped taking it. Denies smoking or alcohol or any drug use.
A/P:
# Chest pain likely ACS with NSTEMI
# History of heart murmur
EKG shows normal sinus rhythm, T wave inversions in lead V1
Troponin peaked at 0.7
Pending echo
Cont Heparin drip
Off Nitroglycerin drip, cont SL Nitro PRN
Cardiology planning for cardiac cath, timing TBD likely 12/14 (pt has been cleared by GI)
# h/o severe GIB
# Ulcerative colitis with history of rectal bleeding on aspirin
Continue mesalamine
ASA started by Card
GI on board
# Essential thrombocytosis
# History of clotting disorder
# History of DVT status post IVC filter
Continue hydroxyurea
Heme on board
# Mild Hyperkalemia secondary to ARB, resolved
Hold azilsartan
# Essential hypertension
# Type 2 diabetes
# Diabetic retinopathy
A1C 7.6%
Pt states that she takes insulin NPH and Lantus based on sliding scale, has been doing this for years per the instruction of her speedometer mechanic
Given NPO status for cath, hold POISING INSPECTOR long acting insulin and use Aspart Insulin sliding scale for now
Hold metformin
# Asthma, mild intermittent
Continue inhalers
Full code
DVT prophylaxis�heparin drip
DW GI
Anticipated Discharge: > 48 hours
Subjective/Interval History
-
Date of Service: December 14, 2023
Objective Data
-
Labs:
Laboratory Results
12/13/23 12/13/23 12/14/23
20:14 22:50 05:44
WBC 6.7
Hgb 12.4
Hct 36.4 L
Plt Count 447 H
APTT 79.8 H 89.8 H 81.3 H
Sodium 136
Potassium 4.7
Chloride 106
Carbon Dioxide 27
BUN 21 H
Creatinine 0.9
Glucose 174 H
Calcium 9.3
Vital Signs:
Vital Signs
Temp Pulse Resp BP Pulse Ox
36.7 C 80 18 129/72 92
12/13/23 22:58 12/13/23 16:42 12/13/23 22:58 12/13/23 16:40 12/13/23 22:58
I&O
12/13/23 12/14/23 12/15/23
06:59 06:59 06:59
Intake Total 1650 / 1650
Balance 1650 / 1650
Review of Systems
-
All other systems: Reviewed and negative
Physical Exam
-
General: Well Developed, Well Nourished, No Apparent Distress, Comfortable and Conversant; Negative Respiratory Distress
HEENT: Normocephalic, Atraumatic, Nose Appears Normal and Ears Appear Normal; Negative Oxygen
Respiratory: Clear to Auscultation and Non Labored Respirations; Negative Accessory Resp Muscle Use
Cardiac: Regular Rhythm and S1/S2
GI: Soft, Nontender, Nondistended and Normal Bowel Sounds
Skin: Warm and Dry
Neuro: Awake, Alert, Oriented, AO x 3 and Nonfocal/Grossly Intact
Psych: Calm and Intact Judgement/Insight
Data Reviewed
-
Labs: Labs Reviewed by me
--- NOTE | 2023-12-14 08:00 | PTCARENOTE ---
Vital signs downloaded from previous shift.
[2023-12-14] MEDS: ZYRTEC 10 MG PO (08:48)
[2023-12-14] MEDS: VITAMIN D3 (cholecalciferol) 25 MCG PO (08:48)
[2023-12-14] MEDS: NON-FORMULARY ITEM 1 GRAMS PO (08:49)
[2023-12-14] MEDS: LOW STRENGTH ASPIRIN 81 MG PO (08:49)
[2023-12-14] MEDS: HYDREA 500 MG PO (08:50)
[2023-12-14] MEDS: THERAGRAN 1 TABLET PO (08:51)
[2023-12-14 08:53] LABS: Glucose - Point of Care 205 mg/dl (70-99)
--- NOTE | 2023-12-14 09:39 | W.PN.ONC ---
Today's Communication / Plan
-
Difficult complex case with a history of atypical bleeding
Prothrombin gene mutation is associated with arterial thrombosis
Suspect that ET may have also contributed to the event
Would recommend titration of hydroxyurea to maintain platelet count less <400
Will discuss the risk benefit of Eliquis versus Brilinta/aspirin with cardiology in a patient with GI bleeding
Will continue to follow patient will be transferring care to [facility] which is in close proximity to her home
Impression
Impression
Impression:
Non-STEMI with elevated troponin
Essential Thrombocytosis on hydroxyurea
Heterozygous for prothrombin gene mutation
History DVT x 2, and 1992 status post [place] filter
Ulcerative colitis per patient
Diabetes mellitus II
Hyperlipidemia
Hypertension
Asthma
Plan
Plan
Patient is currently on IV heparin. For cardiac catheterization.
Regarding essential thrombocytosis, continue hydroxyurea to maintain platelet count around 300,000 - 600,000. Currently she is taking hydroxyurea 500 mg daily -.
Ideally she would take low-dose aspirin although the patient has declined because of rectal bleeding. GI has been consulted. She believes rectal bleeding is related to underlying ulcerative colitis.
Obviously, if she has cardiac stenting, she may require antiplatelet therapy to prevent IntraStent thrombosis.
Regarding full therapeutic anticoagulation with history of heterozygote prothrombin 21764 gene mutation, this is not an absolute indication for anticoagulation and she has done well 17 years. At this point, particular with history of rectal
bleeding, I would not start anticoagulation simply based on this genetic diagnosis even though she has been on anticoagulation for almost 20 years and her previous computer art instructor was uncomfortable and her stopping it. The anticoagulation was stopped
AGAINST MEDICAL ADVICE at that time because of skin thinning.
For now we will standby and follow with you. Continue to monitor CBC with attention to platelet count on hydroxyurea. Await cardiac catheterization and decisions regarding stents.
Subjective/Objective
Subjective/Objective
Patient sitting at the bedside without shortness of breath or chest pain. Platelet count continues to regress at 447k.
Vital Signs:
Vital Signs
Temp Pulse Resp BP Pulse Ox
98.0 F 97 18 102/70 96
12/14/23 08:46 12/14/23 08:44 12/14/23 08:46 12/14/23 08:44 12/14/23 08:46
Physical Exam
General: Well Developed and Well Nourished
HEENT: Negative Jaundice
Cardiology: S1 and S2
Pulmonary: Clear
GI: Soft
Extremities: No C/C/E
Neurology: Non Focal
Skin: Warm
Lab Results:
Laboratory Data
WBC 6.7 10^3/uL (4.8-10.8) 12/14/23 05:44
Hgb 12.4 g/dL (12.0-16.0) 12/14/23 05:44
Plt Count 447 10^3/uL (130-400) H 12/14/23 05:44
APTT 81.3 Sec (23.4-35.0) H 12/14/23 05:44
eGFR > 60.00 12/14/23 05:44
[2023-12-14] MEDS: NOVOLOG FLEXPEN-LOW RESISTANCE SC ×2 (10:11→14:08)
[2023-12-14 13:42] LABS: Glucose - Point of Care 137 mg/dl (70-99)
[2023-12-14] MEDS: LOW STRENGTH ASPIRIN 243 MG PO (14:29)
[2023-12-14] MEDS: BENADRYL 25 MG IV (14:30)
[2023-12-14] MEDS: SOLU-CORTEF 100 MG IV (14:31)
--- NOTE | 2023-12-14 15:16 | W.PN.GI.CBS2 ---
Today's Communication / Plan
-
Recommendations:
-History of ulcerative colitis without any active flare at this time though recent mucus and blood with bowel movements without significant diarrhea.
No evidence of anemia
Continue mesalamine 1.2 g oral tablet twice a day and will add mesalamine enema every night. Patient is going to get it from home today and use it if it is not available through hospital pharmacy.
ESR is elevated at 23 but CRP normal, await fecal calprotectin and also celiac panel given questionable history of celiac disease.
Patient currently on IV heparin drip without any significant increase in bleeding.
Continue to monitor H&H.
Okay to continue cardiology evaluation, if there is any significant active bleeding, we could use steroids to treat flare ups.
She has appointment with our office, Dr. Contreras coming up in December.� Suggested keeping on the appointment.� Eventual colonoscopy once she is able to from a cardiac standpoint as an outpatient.
Will follow
Assessment / Plan
-
The pt is a pleasant 68 yo female with a PMH significant for newly diagnosed Ulcerative colitis on oral mesalamine, thrombocytosis on hydroxyurea followed by hematology Dr. Mariscal, hx DVT x2 with placement of IVC filter, HTN, HLD, DM2, asthma,
heterozygous prothrombin gene previously on ASA but self discontinued due to rectal bleeding, who presented to the ER with complaints of chest pain. Noted with elevated troponins and EKG changes consistent with NSTEMI. Improved chest pain with
sublingual nitro. Currently in no acute distress with no complaints of pain. She notes being recently diagnosed with ulcerative colitis last February with flex sig with Dr. Scott out of [place]. Currently with no significant bleeding but does
report prior mild bleeding with aspirin therapy. Recent fecal calprotectin greater than 2000 indicating likely unmanaged IBD. No significant anemia.
Problem list:
-Intermittent rectal bleeding, hx recently dx UC on mesalamine
-?celiac disease
-NSTEMI
-Thrombocytosis on hydroxyurea following hematology
-Heterozygous prothrombin gene mutation
-History of DVT
-History of rectal bleeding on aspirin
-Elevated troponins
Other pertinent medical history:
-Hypertension
-Type 2 diabetes
-Asthma
-Hyperlipidemia
Recommendations:
-History of ulcerative colitis without any active flare at this time though recent mucus and blood with bowel movements without significant diarrhea.
No evidence of anemia
Continue mesalamine 1.2 g oral tablet twice a day and will add mesalamine enema every night. Patient is going to get it from home today and use it if it is not available through hospital pharmacy.
ESR is elevated at 23 but CRP normal, await fecal calprotectin and also celiac panel given questionable history of celiac disease.
Patient currently on IV heparin drip without any significant increase in bleeding.
Continue to monitor H&H.
Okay to continue cardiology evaluation, if there is any significant active bleeding, we could use steroids to treat flare ups.
She has appointment with our office, Dr. Contreras coming up in December.� Suggested keeping on the appointment.� Eventual colonoscopy once she is able to from a cardiac standpoint as an outpatient.
Will follow
Subjective
Subjective
Date of Service: December 14, 2023
Patient reports having 3 bowel movements, with some blood. He is on mesalamine tablets but not had enema as pharmacy did not have it in stock
Objective
Data Reviewed
Laboratory Data:
Laboratory Results
12/14/23 05:44
12/14/23 05:44
Laboratory Results
APTT 81.3 Sec (23.4-35.0) H 12/14/23 05:44
Magnesium 2.2 mg/dl (1.6-2.3) 12/14/23 05:44
Total Bilirubin 0.7 mg/dl (0.2-1.3) 12/13/23 01:14
AST 28 U/L (14-36) 12/13/23 01:14
ALT 27 U/L (0-35) 12/13/23 01:14
Alkaline Phosphatase 136 U/L (38-126) H 12/13/23 01:14
Vital Signs and I&O:
Vital Signs
Temp Pulse Resp BP Pulse Ox
98.4 F 79 20 136/75 97
12/14/23 11:32 12/14/23 11:36 12/14/23 11:32 12/14/23 11:36 12/14/23 11:32
I&O
12/13/23 12/14/23 12/15/23
06:59 06:59 06:59
Intake Total 1650 / 1650
Output Total 250 / 250
Balance 1650 / 1650 -250 / -250
Physical Exam
Physical Exam
GI: Soft, Non Distended and Non Tender
[2023-12-14 16:28] LABS: ACT-LR - POC 171 Seconds (116-155)
[2023-12-14 16:37] LABS: ACT-LR - POC 258 Seconds (116-155)
[2023-12-14 17:06] LABS: ACT-LR - POC 392 Seconds (116-155)
[2023-12-14] MEDS: NSS 1000 IV (17:50)
--- NOTE | 2023-12-14 17:51 | ITS.CL.CATH ---
[facility] - Catheterization
Cardiac Catheterization
Procedure Report:
LEFT HEART CATH AND CORONARY INTERVENTION
Date of Procedure: December 14, 2023
Referring: Dr. Valentin Garg
PROCEDURES:
1. Left heart catheterization with coronary and single-plane left ventriculography
2. Hemodynamic assessment of LAD with a [place] Verrata wire with the iFR serially measuring below the ischemic threshold at 0.84, 0.83, and 0.84
3. Successful stenting of proximal to mid LAD with a 3.5 x 28 mm Xience stent that was implanted at nominal pressures and postdilated with a 3.5 mm noncompliant balloon
INDICATION: This is a 68-year-old female with a past medical history notable for thrombocytosis, heterogeneous for prothrombin gene mutation with history of DVT x 2 and [place] filter placement. She is a longstanding diabetic with a history of
hypertension and hyperlipidemia. She presented to [facility] for evaluation of substernal chest pain and her troponin became mildly elevated peaking at 0.7 ng/mL. She is now referred for coronary angiography.
ACCESS: The right radial pulse was poor. I attempted right radial access using ultrasound guidance. The needle was seen entering the right radial artery on several occasions, however, a wire could not be passed into the forearm and a sheath was
never delivered. Attention was then turned to the right common femoral artery. Ultrasound guidance was utilized for arterial access and a 6 [place] sheath was inserted.
HEMODYNAMICS (mmHg):
AO (s/d, m) : 178/77
LV (s/d) : 181/9
LVEDP : 19
CORONARY FINDINGS
Dominance: Codominant
LEFT MAIN: Normal
LEFT ANTERIOR DESCENDING: The LAD arises normally from the left main and runs in the anterior interventricular groove. There is a long 70-75% stenosis from the proximal to mid LAD. The iFR distal to the lesion measured below the ischemic threshold
at 0.84, 0.83, and 0.84. The mid to distal LAD has only minor irregularities.
RAMUS: Image 8 suggests a proximal stenosis in ramus vs overlap of LAD / ramus. This stenosis could NOT be confirmed in any other view due to vessel overlap
CIRCUMFLEX: The circumflex is a large-caliber dominant vessel giving rise to a medium caliber OM1. The circumflex then continues in the AV groove terminating in a sizable posterolateral branch and codominant PDA
RIGHT CORONARY: The right coronary artery is a medium caliber codominant vessel with a 50% mid stenosis. PDA is small and. Posterolateral branch is a small to medium caliber vessel
VENTRICULOGRAPHY: Left ventriculography was performed in an AMAYA projection. The digital single-plane left ventricular ejection fraction is estimated greater than 65%
HEMODYNAMIC ASSESSMENT OF THE LAD WITH A Audiam VERRATA WIRE: The origin of the left main was cannulated with a 6 Fr EBU 3.5 guide catheter. Intravenous heparin was administered and the ACT was followed during the procedure. Two hundred
micrograms of intracoronary nitroglycerin was given through the guide catheter. A [place] Verrata wire was advanced to the guide catheter tip and normalized to guide catheter pressure. The Verrata wire was then carefully manipulated across the
stenosis in the proximal to mid LAD and advanced distally where the iFR serially measured below the ischemic threshold at 0.84, 0.83, and 0.84. The Verrata wire was then pulled back to the guide catheter where the Pd/Pa measured 1.01 confirming no
baseline drift in pressure readings
ANGIOPLASTY PROCEDURE DETAIL: I attempted to define the ramus stenosis and could not identify significant stenosis in any other views. The iFR clearly measured below the ischemic threshold and the decision was made to proceed with percutaneous
revascularization of the proximal to mid LAD. Intravenous heparin was administered and the ACT was monitored throughout the procedure. A BMW guidewire was advanced to the apical LAD and a Power Turn Flex wire was advanced to the first diagonal
branch. Balloon angioplasty was performed as predilation using a 2.5 mm trek balloon and was followed by placement of a 3.5 x 28 mm Xience stent that was implanted at nominal pressures then postdilated to high pressures with a 3.5 mm noncompliant
balloon with a nice angiographic result
RADIATION SUMMARY: Fluoro Time (min): 12.9, Dose (mGy): 994.9, DAP (Gy.cm2) : 65.2
CONCLUSIONS
1. Successful stenting of ostial to mid LAD with a 3.5 x 28 mm Xience stent that was implanted at nominal pressures and postdilated to high pressures with a 3.5 mm noncompliant balloon
2. Preserved left ventricular systolic function
RECOMMENDATIONS
1. Uninterrupted dual antiplatelet therapy with aspirin and ticagrelor
2. Secondary risk modification including high intensity statin therapy
3. Will need aggressive control of blood pressures. Goal systolic blood pressure less than 130 mmHg and diastolic blood pressure less than 80 mmHg
Copy to: Dr. Valentin Garg
[2023-12-14 18:21] LABS: Glucose - Point of Care 217 mg/dl (70-99)
--- NOTE | 2023-12-14 18:37 | PTCARENOTE ---
Received patient post cath at 1740. Right groin Angioseal with dressing clean, dry & intact. Patient states understanding of bedrest and right leg restrictions. Ordered dinner. at bedside.
[2023-12-14] MEDS: NOVOLOG FLEXPEN-LOW RESISTANCE 2 UNITS SC (19:03)
[2023-12-14] MEDS: NON-FORMULARY ITEM 1.19999999999999996 GRAMS PO (20:52)
[2023-12-14 21:35] LABS: Glucose - Point of Care 308 mg/dl (70-99)
[2023-12-14] MEDS: ROWASA ENEMA 60 ML RECTAL (22:38)
[2023-12-15] VITALS (24 sets, daily range): BP systolic 87–161; BP diastolic 49–125
[2023-12-15 01:05] LABS: Glucose - Point of Care 196 mg/dl (70-99)
[2023-12-15 05:36] LABS: Hematocrit 35.8 % (37.0-47.0); Hemoglobin 12.2 g/dL (12.0-16.0); Mean Corp Hgb Conc. 34.1 g/dL (33.0-37.0); Mean Corpuscular Hgb 31.4 pg (27.0-31.0); Mean Corpuscular Volume 92.3 fL (81.0-99.0); Platelet Count 469 10^3/uL (130-400); Red Blood Cell Count 3.88 10^6/uL (4.20-5.40); White Blood Cell Count 7.9 10^3/uL (4.8-10.8)
--- NOTE | 2023-12-15 06:03 | W.PN.UPDATE ---
Update Note
Progress Note Update
-pt walked to the bathroom and c/o R groin tenderness afterwards. Groin is soft, cdi, no hematoma noted. Applied pressure for 10 min. SBP 150s, h/h stable 12.2 (12.4 yesterday). Pt reports allergies to multiple meds, including Tylenol, Morphine,
[place], Ultram, Toradol. She tolerated Dilaudid in the past - will give low dose.
[2023-12-15 06:07] LABS: Blood Urea Nitrogen 26 mg/dl (7-17); Calcium 9.5 mg/dl (8.4-10.2); Carbon Dioxide 23 mmol/L (22-30); Chloride 104 mmol/L (98-107); Estimated Creatinine Clearance 60 ml/min; Glucose 145 mg/dl (70-99); Potassium 4.1 mmol/L (3.5-5.1); Sodium 137 mmol/L (135-145); eGFR > 60.00
[2023-12-15] MEDS: DILAUDID 0.25 MG IV (06:12)
--- NOTE | 2023-12-15 07:47 | W.PN.HOSP.TC ---
Addendum entered and electronically signed by Colton Stout MD 12/15/23 15:40:
ACEi/ARBs listed as allergies. Case discussed with Dr. Solis. Devon Lisa on discharge at this time.
Addendum entered and electronically signed by Colton Stout MD 12/15/23 15:36:
GI and cardiology are both cleared the patient for discharge.
Total time spent on d/c = 36 min. This included today's physical exam, progress note, review of laboratory and diagnostic data, preparation of discharge documents and prescriptions, and discussions about the pt's hospital course and discharge plan
with the patient and other medical office rep involved in the patient's care.
Original Note:
Today's Communication/Plan
-
see bold
Assessment / Plan
Assessment / Plan
HPI: 68-year-old female with past medical history of heart murmur, thrombocytosis, clotting disorder, history of DVT with history of IVC filter, diabetes, diabetic retinopathy, asthma, hypertension, ulcerative colitis, presented with chest pain
since 9:30 AM on DOA. Pain described as pressure across her chest radiating into her arms bilaterally with numbness and tingling in her right hand and left upper arm.�She also has radiation of the pain to her upper back.�She denied any nausea or
vomiting or sweating or shortness of breath or abdominal pain. She denies any history of heart attacks. She used to be on aspirin but developed significant rectal bleeding so she stopped taking it. Denies smoking or alcohol or any drug use.
Gen: NAD, AAOx3.
Eyes: EOMI, PERRLA, no scleral icterus.
Neck: supple.
CV: tachy, reg rhythm, +S1/S2, no m/r/g.
Resp: CTAB, no rales, wheezes, or rhonchi.
Abd: +BS, soft, NT, ND
Skin: No rashes.
Neuro: CN 2-12 intact, non-focal.
Psych: Normal mood and affect.
Cardiac cath:
1.� Successful stenting of ostial to mid LAD with a 3.5 x 28 mm Xience stent that was implanted at nominal pressures and postdilated to high pressures with a 3.5 mm noncompliant balloon
2.� Preserved left ventricular systolic function
Echo: Normal left ventricular chamber size.
�Normal left ventricular systolic function.
�Normal regional wall motion.
�Normal left ventricular wall thickness.
�Left ventricular ejection fraction is 60% by volumetric assessment.
�Normal right ventricular size and function.
�No mitral regurgitation is seen.
�No aortic regurgitation is seen.
�Mild tricuspid regurgitation.
�Estimated pulmonary artery pressure of 28 mmHg assuming a right atrial pressure
�of 3 mmHg.
�No pericardial effusion.
�The IVC is of normal size and demonstrates normal respiratory variation.
NSTEMI:
-trop peaked at 0.701
-was on NTG gtt, now off
-was on heparin gtt, now off
-echo above
-cath above, stent to mid LAD
-cont ASA/Brilinta
-currently not on BB or statin. Reports hives with BB. As per discussion with cardiology will likely try to arrange for Repatha.
Ulcerative colitis:
-with history of severe rectal bleeding on aspirin
-Continue mesalamine
-GI following
Essential thrombocytosis: cont hydroxyurea
h/o clotting disorder and DVT status post IVC filter
Mild Hyperkalemia secondary to ARB, resolved, holding azilsartan
Essential hypertension: ARB on hold as above
DM2 with diabetic retinopathy: a1c 7.6%. Change SSI to mod resistance. Home metformin on hold
Asthma, mild intermittent: albuterol PRN
FULL/Heparin
Anticipated Discharge: Within 24 hours
Subjective/Interval History
-
Date of Service: December 15, 2023
Pt reports intermittent, pressure-like, L-sided chest pain.
Objective Data
-
Labs:
Laboratory Results
12/15/23
05:19
WBC 7.9
Hgb 12.2
Hct 35.8 L
Plt Count 469 H
Sodium 137
Potassium 4.1
Chloride 104
Carbon Dioxide 23
BUN 26 H
Creatinine 0.8
Glucose 145 H
Calcium 9.5
Vital Signs:
Vital Signs
Temp Pulse Resp BP Pulse Ox
97.8 F 84 20 129/62 98
12/15/23 03:24 12/15/23 03:23 12/15/23 03:24 12/15/23 03:23 12/15/23 03:24
I&O
12/14/23 12/15/23 12/16/23
06:59 06:59 06:59
Intake Total 1650 / 1650
Output Total 250 / 250
Balance 1650 / 1650 -250 / -250
[2023-12-15 08:12] LABS: Glucose - Point of Care 173 mg/dl (70-99)
[2023-12-15] MEDS: NOVOLOG FLEXPEN-LOW RESISTANCE SC (08:17)
[2023-12-15] MEDS: BRILINTA 90 MG PO (09:09)
[2023-12-15] MEDS: LOW STRENGTH ASPIRIN 81 MG PO (09:09)
[2023-12-15] MEDS: ZYRTEC 10 MG PO (09:09)
[2023-12-15] MEDS: THERAGRAN 1 TABLET PO (09:09)
[2023-12-15] MEDS: VITAMIN D3 (cholecalciferol) 25 MCG PO (09:09)
[2023-12-15] MEDS: NON-FORMULARY ITEM 1.19999999999999996 GRAMS PO (09:11)
--- NOTE | 2023-12-15 09:40 | W.PN.CARDCBS ---
Addendum entered and electronically signed by Shiloh Arnold PA-C 12/15/23 16:02:
Taken off Edarbi this admission due to hyperkalemia. Resumption can readdressed at outpatient follow up. Consider resuming at lower dose as pt has been intolerant to numerous other antihypertensive agents in the past.
Addendum entered and electronically signed by Isaura Solis DO 12/15/23 12:51:
Right groin ultrasound negative for pseudoaneurysm, AV fistula or hematoma.
Addendum entered and electronically signed by Isaura Solis DO 12/15/23 11:23:
I saw and examined the patient.
The Expediter Service Order's note was reviewed and I agree with the note.
Comment: Seen and examined with cardiac PA. Patient is feeling well without complaints of chest pain or pressure. She does have right groin pain; denies bleeding.
General: No acute distress, AAOX3
Neck: Negative JVD
Heart: Regular, positive S1/S2, No murmur
Lungs: CTA b/l, negative wheezes/rales/rhonchi
Abd: Positive BS, NT/ND, neg rebound/rigidity/guarding
Ext: Right radial wrist with slight ecchymosis. No hematoma. Intact radial pulse. Right groin tender to palpation without hematoma/ecchymosis. No bruit.
Neuro: nonfocal
Plan:
-Presented with chest pain.� Admitted with NSTEMI.� She is status post PCI of the ostial to mid LAD with a 3.5 x 20 mm Xience ELINA 12/14/2023.
-Continue DAPT with aspirin and Brilinta.
-Echo 12/13 showed preserved EF with no significant valvular disease.
-Not on BB due to prior allergy. Patient has multiple allergies.
-LDL 112 on 12/13. Has not tolerated statins or Zetia in the past. Discussed with patient PCSK9 inhibitors and send message to nursing in our office to start preauthorization process.
-No further blood noted in the stool. GI evaluated and recommending eventual colonoscopy.
-Continue DM management per primary service
-R groin pain noted overnight. No hematoma/significant ecchymosis and no bruit auscultated. Groin US ordered to evaluate prior to discharge
-Eventual cardiac rehab
-Follow up arranged.
-If groin US stable, would be stable for discharge later today.
Original Note:
Today's Communication / Plan
-
Check groin US
If US stable, ok for discharge
Continue DAPT with aspirin and Brilinta
No statin/BB due to prior allergy/intolerances
Looking into Repatha as OP.
Impression / Plan
-
PCP:Dr. Bustos
Barber: Dr. Garg
Impression:
NSTEMI
CAD
s/p LAD PCI 12/14/2023
History IV contrast dye allergy
Blood in stool with history of ulcerative colitis per patient
Diabetes mellitus II
Hyperlipidemia
Hypertension
Thrombocytosis on hydroxyurea
Heterozygous for prothrombin gene mutation
History DVT 1993 status post [place] filter
Asthma
Ulnar nerve surgery left
Diabetic retinopathy
History umbilical hernia
Hysterectomy
Echo 12/13/2023: EF 60%, mild TR, estimated PAP 28 mmHg
Plan:
-Presented with chest pain. Admitted with NSTEMI. She is status post PCI of the ostial to mid LAD with a 3.5 x 20 mm Xience ELINA 12/14/2023.
-Continue DAPT with aspirin and Brilinta.
-Echo 12/13 showed preserved EF with no significant valvular disease.
-Not on BB due to prior allergy.
-LDL 112 on 12/13. Has not tolerated statins or Zetia in the past. Looking into starting Repatha, process started through cardiology office.
-No further blood noted in the stool. GI evaluated and recommending eventual colonoscopy.
-Continue DM management per primary service
-R groin pain noted overnight. Groin US ordered to evaluate.
-Eventual cardiac rehab
-Follow up arranged.
-If groin US stable, would be stable for discharge later today.
HPI:Zahida has a history of thrombocytosis, heterozygous for prothrombin gene mutation with previous history of DVT status post [place] filter, hypertension, hyperlipidemia, diabetes who developed chest pain yesterday.� It was worse on the left
side.� She also had epigastric pain with radiation to the back.� Her symptoms started yesterday morning and progressed and worsened into the afternoon.� She came into the emergency room for evaluation.� Her first troponin was abnormal with
subsequent troponins rising, currently 0.6.� She did have some relief with sublingual nitroglycerin. She states she is been recommended aspirin but has not been able to take it due to rectal bleeding.� She had some blood in the stool this morning.�
She also is already scheduled to see GI.� She follows with a machine heel sprayer Dr. Kunal Mariscal and takes hydroxyurea for thrombocytosis.� She also has a dye allergy to contrast. She was last seen in the cardiology office August 2023.� At that time she
had some atypical chest pain and was recommended stress testing but she declined this.� Her last echo was June 2023 with EF 55 to 60% and mild LVH with no significant valvular disease.
Progress Note - Barber
Subjective
Date of Service: December 15, 2023
No further chest pain overnight
Objective
Labs:
12/15/23 05:19
12/15/23 05:19
Labs
Hgb 12.2 g/dL (12.0-16.0) 12/15/23 05:19
Hct 35.8 % (37.0-47.0) L 12/15/23 05:19
Plt Count 469 10^3/uL (130-400) H 12/15/23 05:19
APTT 81.3 Sec (23.4-35.0) H 12/14/23 05:44
Sodium 137 mmol/L (135-145) 12/15/23 05:19
Potassium 4.1 mmol/L (3.5-5.1) 02/02/24 05:19
BUN 26 mg/dl (7-17) H 12/15/23 05:19
Creatinine 0.8 mg/dL (0.6-1.0) 12/15/23 05:19
Glucose 145 mg/dl (70-99) H 12/15/23 05:19
Troponins
12/12/23 12/12/23 12/12/23
14:08 16:50 20:04
Troponin I Cancelled 0.146 H* Cancelled
12/12/23 12/13/23 12/13/23
23:39 01:14 08:36
Troponin I 0.477 H* D 0.603 H* D 0.701 H*
12/13/23 12/13/23
15:47 20:14
Troponin I 0.504 H* D 0.410 H*
Vital Signs and I&O:
Vital Signs
Temp Pulse Resp BP Pulse Ox
97.9 F 91 18 127/54 95
12/15/23 08:00 12/15/23 09:00 12/15/23 08:00 12/15/23 09:00 12/15/23 08:00
Vital Signs
Temp Pulse Resp BP Pulse Ox
97.9 F 91 18 127/54 95
12/15/23 08:00 12/15/23 09:00 12/15/23 08:00 12/15/23 09:00 12/15/23 08:00
Intake & Output
12/13/23 12/14/23 12/15/23 12/16/23
06:59 06:59 06:59 06:59
Intake Total 1650 / 1650
Output Total 250 / 250
Balance 1650 / 1650 -250 / -250
Physical Exam
Physical Exam
General: No acute distress, AAOX3
Neck: Negative JVD
Heart: Regular, Negative S3 positive S1/S2, Negative S4, No murmur
Lungs: CTA b/l, negative wheezes/rales/rhonchi
Abd: Positive BS, NT/ND, neg rebound/rigidity/guarding
Ext: Negative cyanosis/clubbing/edema
Neuro: nonfocal
--- NOTE | 2023-12-15 10:06 | CM ---
Reviewed chart. Met with MrLadan and Mrs. Severino to review discharge plans. Telephone call to [facility] ([phone]) to check co-pay for Brilinta 90 mg po bid. He co-pay would be $47.00 a month or $141.00 for a 90 day supply.
Telephone call to [facility] in [place] to check if Brilinta 90 mg po is in stock. [facility] states they have Brilinta in stock. She can use the one month free coupon for her Brilinta. Placed the one month free coupon in her red discharge
folder. Prior to admission she resides with her spouse and 24 year old granddaughter in a two story home with two steps to enter. She has a full flight of steps to get to bedroom/full bathroom. She has a powder room on the first floor. She does
not have any DME in the home. She has a prescription plan and uses [facility] mail order and [facility]. Medical work-up in progress. The discharge plan is to return home with her souse and granddaughter when medically stable.
--- NOTE | 2023-12-15 11:05 | W.PN.GI.CBS2 ---
Today's Communication / Plan
-
Increase the dose of mesalamine to 4.8 g daily continue Rowasa enema
Assessment / Plan
-
The pt is a pleasant 68 yo female with a PMH significant for newly diagnosed Ulcerative colitis on oral mesalamine, thrombocytosis on hydroxyurea followed by hematology Dr. Mariscal, hx DVT x2 with placement of IVC filter, HTN, HLD, DM2, asthma,
heterozygous prothrombin gene previously on ASA but self discontinued due to rectal bleeding, who presented to the ER with complaints of chest pain. Noted with elevated troponins and EKG changes consistent with NSTEMI. Improved chest pain with
sublingual nitro. Currently in no acute distress with no complaints of pain. She notes being recently diagnosed with ulcerative colitis last February with flex sig with Dr. Scott out of [place]. Currently with no significant bleeding but does
report prior mild bleeding with aspirin therapy. Recent fecal calprotectin greater than 2000 indicating likely unmanaged IBD. No significant anemia.
Problem list:
-Intermittent rectal bleeding, hx recently dx UC on mesalamine
-?celiac disease
-NSTEMI
-Thrombocytosis on hydroxyurea following hematology
-Heterozygous prothrombin gene mutation
-History of DVT
-History of rectal bleeding on aspirin
-Elevated troponins
Other pertinent medical history:
-Hypertension
-Type 2 diabetes
-Asthma
-Hyperlipidemia
Recommendations:
-History of ulcerative colitis without any active flare at this time though recent mucus and minimal blood with bowel movements without significant diarrhea.
No evidence of anemia
Continue mesalamine will increase the dose to 4.8 g daily she is currently on 2.4 g daily and continue Rowasa enemas
ESR is elevated at 23 but CRP normal, await fecal calprotectin and also celiac panel given questionable history of celiac disease.
On aspirin and Brilinta status post stent
HH stable
She has appointment with our office, Dr. Contreras coming up in December.� Suggested keeping on the appointment.� Eventual colonoscopy once she is able to from a cardiac standpoint as an outpatient.
Okay to DC home from a GI perspective we will sign off and will be available as needed
Subjective
Subjective
Date of Service: December 15, 2023
Currently has no diarrhea has minimal mucus no rectal bleeding on aspirin and Brilinta
Objective
Data Reviewed
Laboratory Data:
Laboratory Results
12/15/23 05:19
12/15/23 05:19
Laboratory Results
APTT 81.3 Sec (23.4-35.0) H 12/14/23 05:44
Magnesium 2.2 mg/dl (1.6-2.3) 12/14/23 05:44
Total Bilirubin 0.7 mg/dl (0.2-1.3) 12/13/23 01:14
AST 28 U/L (14-36) 12/13/23 01:14
ALT 27 U/L (0-35) 12/13/23 01:14
Alkaline Phosphatase 136 U/L (38-126) H 12/13/23 01:14
Vital Signs and I&O:
Vital Signs
Temp Pulse Resp BP Pulse Ox
97.9 F 88 18 134/118 95
12/15/23 08:00 12/15/23 10:00 12/15/23 08:00 12/15/23 10:00 12/15/23 08:00
I&O
12/14/23 12/15/23 12/16/23
06:59 06:59 06:59
Intake Total 1650 / 1650
Output Total 250 / 250
Balance 1650 / 1650 -250 / -250
Physical Exam
Physical Exam
Cardiology: Normal Sinus Rhythm
Pulmonary: Clear
GI: Soft, Non Distended, Non Tender and Normal Bowel Sounds
[2023-12-15 11:53] LABS: Glucose - Point of Care 228 mg/dl (70-99)
[2023-12-15] MEDS: NOVOLOG FLEXPEN-MODERATE RESISTANCE 3 UNITS SC (11:54)
[2023-12-15] MEDS: HYDREA 500 MG PO (12:30)
--- NOTE | 2023-12-15 17:35 | PTCARENOTE ---
Discharge order placed by physician. monitor and storage bin tender disconnected so patient could change into her own clothes. She called her to come pick her up. Once Turner arrived, nurse gave discharge instructions, medication list with last
dose of medications, and education. Nurse answered patient's questions and her spouse's questions. PIV discontinued. [facility] by staff escort.
[2023-12-16 00:59] LABS: tTG IgA Antibody <1.02 FLU (0.00-4.99)
[2023-12-16 23:14] LABS: Endomysial IgA Antibody Titer <1:10 (<1:10)
[2023-12-17 00:58] LABS: Calprotectin, Fecal >3000 ug/g (<=49)
--- NOTE | 2023-12-19 16:20 | W.DCSUMMARY ---
Discharge Summary
Discharge Data
Date of Admission: 12/12/23
Date of Discharge: 12/15/23
-
Pending Results: No
Hospital Course
Primary diagnoses:
Acute non-ST elevation myocardial infarction
Secondary diagnoses:
Essential thrombocytosis
h/o clotting disorder and DVT status post IVC filter
Mild Hyperkalemia secondary to angiotensin receptor francisca
Essential hypertension
Type 2 diabetes mellitus with diabetic retinopathy
Asthma, mild intermittent
Consultants:
Cardiology
Gastroenterology
Imaging:
Cardiac cath:
1.� Successful stenting of ostial to mid LAD with a 3.5 x 28 mm Xience stent that was implanted at nominal pressures and postdilated to high pressures with a 3.5 mm noncompliant balloon
2.� Preserved left ventricular systolic function
Echo: Normal left ventricular chamber size.
�Normal left ventricular systolic function.
�Normal regional wall motion.
�Normal left ventricular wall thickness.
�Left ventricular ejection fraction is 60% by volumetric assessment.
�Normal right ventricular size and function.
�No mitral regurgitation is seen.
�No aortic regurgitation is seen.
�Mild tricuspid regurgitation.
�Estimated pulmonary artery pressure of 28 mmHg assuming a right atrial pressure
�of 3 mmHg.
�No pericardial effusion.
�The IVC is of normal size and demonstrates normal respiratory variation.
Hospital course: 68-year-old female who presented with a chief complaint of chest pain as outlined in the H&P done on admission. Patient's troponins were trended and her peak troponin was 0.701. She was placed on a heparin drip. She had a cardiac
cath with stenting to the mid LAD. Echocardiogram above. Her heparin drip was stopped. She was placed on aspirin and Brilinta. Patient had multiple drug allergies
-was on heparin gtt, now off which is why should not receive beta-francisca statin. Angiotensin receptor francisca also may have caused hyperkalemia and the use of angiotensin receptor blockers was to be addressed after discharge. Cardiology was also
going to attempt to arrange for Repatha after discharge. She was discharged in medically stable condition.
Discharge Plan
-
Patient Disposition: Home (Routine Discharge)
Discharge Diagnosis/Procedures: Non-ST elevation myocardial infarction, Angioplasty with stent to left anterior descending artery
Condition: Good
Diet: Low Cholesterol and Diabetic, Carb Controlled
Activity: As tolerated
Driving Restrictions: No driving for 24 hours
Other Services: Cardiac Rehab
Stop these medications:: Hold Metformin post procedure, resume on Sat evening
Stand Alone Forms: DC Instructions- Cath/EP Lab
Referrals:
Shiloh Arnold PA-C [Specified Professional Personl] - 01/09/24 1:40 pm (You have a follow up visit with Dr. Garg's Shiloh NICK, at the [facility]. Please call with questions. )
Eugene Bustos MD [Family Provider] - in less than 1 week
Prescriptions:
New
Brilinta 90 mg Tablet
90 mg PO BID Qty: 60 0RF
aspirin [Children's Aspirin] 81 mg Tablet,Chewable
81 mg PO DAILY Qty: 0 0RF
Continued
hydroxyurea 500 mg Capsule
500 mg PO MOTUWETHFR
cetirizine [Aller-Jose] 10 mg Tablet
10 mg PO DAILY
albuterol sulfate [ProAir HFA] 90 mcg/actuation Hfa Aerosol Inhaler
2 puff INHALATION R Q6HPRN PRN (Reason: sob)
insulin NPH isoph U-100 human 100 unit/mL (3 mL) Insulin Pen
16 unit SC QPM
cholecalciferol (vitamin D3) [Vitamin D3] 25 mcg (1,000 unit) Tablet
25 mcg PO DAILY
insulin glargine [Lantus Solostar U-100 Insulin] 100 unit/mL (3 mL) Insulin Pen
0 unit SC HS
Flintstones Complete Tablet,Chewable
1 tab PO DAILY
metformin 500 mg Tablet
500 mg PO BID Qty: 0 0RF
Rx Instructions:
restart 12/16/23PM
Changed
mesalamine 1.2 gram Tablet,Delayed Release (Dr/Ec)
4.8 g PO DAILY Qty: 120 0RF
Discontinued
Edarbi 40 mg Tablet
40 mg PO QPM
Discharge Orders:
Discharge Patient (As Directed); Ordered 12/15/23
Ordered By: Colton Stout
Discharge Date and Time
Discharge Date/Time: 12/15/23 18:04
== END 2023-12-15 18:04 | disposition home or self-care (01) | DRG 322 ==
LOC: IVU 19:47
PROVIDERS: Emergency Medicine; Internal Medicine; Internal Medicine Interventional Cardiology; ADMITTING PHYSICIAN Hospitalist; ATTENDING PHYSICIAN Internal Medicine; CONSULT PHYSICIAN Internal Medicine Gastroenterology; CONSULT PHYSICIAN Internal Medicine Hematology & Oncology; CONSULT PHYSICIAN Nuclear Medicine Nuclear Cardiology; EMERGENCY PHYSICIAN Emergency Medicine; FAMILY PHYSICIAN Internal Medicine
PROC: 027034Z Dilation of Coronary Artery, One Artery with Drug-eluting Intraluminal Device, Percutaneous Approach (ICD-10-PCS; 2023-12-14)
PROC: B2151ZZ Fluoroscopy of Left Heart using Low Osmolar Contrast (ICD-10-PCS; 2023-12-14)
PROC: 4A023N7 Measurement of Cardiac Sampling and Pressure, Left Heart, Percutaneous Approach (ICD-10-PCS; 2023-12-14)
PROC: B2111ZZ Fluoroscopy of Multiple Coronary Arteries using Low Osmolar Contrast (ICD-10-PCS; 2023-12-14)
DX: I21.4 Non-ST elevation (NSTEMI) myocardial infarction (principal); D68.52 Prothrombin gene mutation; K51.80 Other ulcerative colitis without complications; E11.319 Type 2 diabetes mellitus with unspecified diabetic retinopathy without macular edema; J45.909 Unspecified asthma, uncomplicated; D75.839 Thrombocytosis, unspecified; E87.5 Hyperkalemia; D47.3 Essential (hemorrhagic) thrombocythemia; E78.00 Pure hypercholesterolemia, unspecified; K42.9 Umbilical hernia without obstruction or gangrene; K90.0 Celiac disease; I34.81 Nonrheumatic mitral (valve) annulus calcification; I10 Essential (primary) hypertension; Z79.84 Long term (current) use of oral hypoglycemic drugs; Z79.4 Long term (current) use of insulin; Z86.718 Personal history of other venous thrombosis and embolism; Z95.828 Presence of other vascular implants and grafts; Z88.5 Allergy status to narcotic agent; Z88.0 Allergy status to penicillin; Z88.8 Allergy status to other drugs, medicaments and biological substances; Z88.6 Allergy status to analgesic agent; Z88.1 Allergy status to other antibiotic agents; Z91.030 Bee allergy status; Z91.041 Radiographic dye allergy status; Z96.651 Presence of right artificial knee joint; Z82.49 Family history of ischemic heart disease and other diseases of the circulatory system; Z91.148 Patient's other noncompliance with medication regimen for other reason; Z80.0 Family history of malignant neoplasm of digestive organs
CPT/HCPCS: 71045; 76937; 80048; 80053; 80061; 82784; 82962; 83036; 83516; 83735; 83993; 84484; 85025; 85027; 85347; 85652; 85730; 86140; 86231; 93005; 93306; 93458; 93571; 93926; 96365; 96366; 99291; C1725; C1760; C1769; C1874; C1894; C9600; Q9967

== ENCOUNTER → 2024-02-07 12:54 | Outpatient (REF) | payer MEDICARE, SELFPAY ==
[2024-02-07 16:24] LABS: Blood Urea Nitrogen 20 mg/dl (7-17); Calcium 10.2 mg/dl (8.4-10.2); Carbon Dioxide 27 mmol/L (22-30); Chloride 106 mmol/L (98-107); Glucose 189 mg/dl (70-99); Potassium 4.9 mmol/L (3.5-5.1); Sodium 138 mmol/L (135-145); eGFR > 60.00
== END ==
LOC: HWLAB 12:54
PROVIDERS: ATTENDING PHYSICIAN Physician Assistant; FAMILY PHYSICIAN Internal Medicine
DX: I10 Essential (primary) hypertension (principal)
CPT/HCPCS: 36415; 80048

== ENCOUNTER 2024-03-11 11:59 | Outpatient (RCR) | payer MEDICARE, SELFPAY ==
[2024-02-12 11:25] LABS: Glucose - Point of Care 157 mg/dl (70-99)
[2024-02-12 12:14] LABS: Glucose - Point of Care 120 mg/dl (70-99)
[2024-02-14 10:59] LABS: Glucose - Point of Care 193 mg/dl (70-99)
[2024-02-14 11:54] LABS: Glucose - Point of Care 131 mg/dl (70-99)
[2024-02-16 11:14] LABS: Glucose - Point of Care 180 mg/dl (70-99)
[2024-02-16 12:15] LABS: Glucose - Point of Care 126 mg/dl (70-99)
[2024-02-19 11:18] LABS: Glucose - Point of Care 118 mg/dl (70-99)
[2024-02-19 12:11] LABS: Glucose - Point of Care 101 mg/dl (70-99)
[2024-02-21 11:10] LABS: Glucose - Point of Care 206 mg/dl (70-99)
[2024-02-21 12:07] LABS: Glucose - Point of Care 156 mg/dl (70-99)
[2024-02-23 10:57] LABS: Glucose - Point of Care 132 mg/dl (70-99)
[2024-02-23 11:49] LABS: Glucose - Point of Care 96 mg/dl (70-99)
[2024-02-23 11:59] LABS: Glucose - Point of Care 105 mg/dl (70-99)
[2024-02-28 11:34] LABS: Glucose - Point of Care 123 mg/dl (70-99)
== END 2024-03-11 23:59 | disposition home or self-care (01) ==
LOC: CRHB 11:59
PROVIDERS: ATTENDING PHYSICIAN Internal Medicine Cardiovascular Disease; FAMILY PHYSICIAN Internal Medicine
DX: I25.10 Atherosclerotic heart disease of native coronary artery without angina pectoris (principal); Z95.5 Presence of coronary angioplasty implant and graft
CPT/HCPCS: 82962; G0422; G0423

== ENCOUNTER → 2024-03-21 08:20 | Outpatient (REF) | payer MEDICARE, SELFPAY ==
[2024-03-21 09:53] LABS: HDL Cholesterol 50 mg/dl; LDL Cholesterol, Calculated 97 mg/dl; Total Cholesterol 168 mg/dl (50-199); Triglyceride 108 mg/dl (10-149); Very Low Density Lipoprotein 21 mg/dl (0-30)
== END ==
LOC: REG 08:20
PROVIDERS: ATTENDING PHYSICIAN Nuclear Medicine Nuclear Cardiology; FAMILY PHYSICIAN Internal Medicine
DX: I10 Essential (primary) hypertension (principal); E78.5 Hyperlipidemia, unspecified
CPT/HCPCS: 36415; 80061

== ENCOUNTER 2024-04-12 11:40 | Outpatient (RCR) | payer MEDICARE, SELFPAY ==
[2024-03-25 11:31] LABS: Glucose - Point of Care 160 mg/dl (70-99)
== END 2024-04-12 23:59 | disposition home or self-care (01) ==
LOC: CRHB 11:40
PROVIDERS: ATTENDING PHYSICIAN Internal Medicine Cardiovascular Disease; FAMILY PHYSICIAN Internal Medicine
DX: I25.10 Atherosclerotic heart disease of native coronary artery without angina pectoris (principal); Z95.5 Presence of coronary angioplasty implant and graft; Z79.82 Long term (current) use of aspirin
CPT/HCPCS: 82962; 93005; G0422; G0423

== ENCOUNTER 2024-05-06 10:56 | Outpatient (RCR) | payer MEDICARE, SELFPAY ==
[2024-05-03 11:32] LABS: Glucose - Point of Care 128 mg/dl (70-99)
== END 2024-05-06 23:59 | disposition home or self-care (01) ==
LOC: CRHB 10:56
PROVIDERS: ATTENDING PHYSICIAN Internal Medicine Cardiovascular Disease; FAMILY PHYSICIAN Internal Medicine
DX: I25.10 Atherosclerotic heart disease of native coronary artery without angina pectoris (principal); Z95.5 Presence of coronary angioplasty implant and graft
CPT/HCPCS: 82962; G0422; G0423

== ENCOUNTER → 2024-05-07 09:32 | Outpatient (REF) | payer MEDICARE, SELFPAY ==
[2024-05-07 11:59] LABS: Urine Albumin Negative (Neg - Trace); Urine Bilirubin Negative (Negative); Urine Character Clear (Clear); Urine Color Yellow; Urine Glucose Negative (Negative); Urine Ketone Negative (Negative); Urine Leukocyte 1+ (Negative); Urine Nitrite Negative (Negative); Urine Occult Blood Negative (Negative); Urine Urobilinogen Negative (Neg - 1+)
[2024-05-07 12:10] LABS: % Basophils 0.7 % (0-2); % Eosinophils 5.1 % (0-6); % Immature Granulocytes 0.2 % (0-0.5); % Lymphocytes 24.9 % (20.5-51.1); % Monocytes 7.4 % (1.7-9.3); % Neutrophils 61.7 % (42.2-75.2); Absolute Eosinophils 0.2 10^3/uL (0-0.7); Absolute Lymphocytes 1.1 10^3/uL (1.2-3.4); Absolute Monocytes 0.3 10^3/uL (0.1-0.6); Absolute Neutrophils 2.7 10^3/uL (1.4-6.5); Hematocrit 41.4 % (37.0-47.0); Hemoglobin 13.3 g/dL (12.0-16.0); Mean Corp Hgb Conc. 32.1 g/dL (33.0-37.0); Mean Corpuscular Hgb 32.2 pg (27.0-31.0); Mean Corpuscular Volume 100.2 fL (81.0-99.0); Nucleated Red Blood Cells % 0 %; Platelet Count 487 10^3/uL (130-400); Red Blood Cell Count 4.13 10^6/uL (4.20-5.40); Red Cell Dist. Width 13.3 % (11.5-14.5); White Blood Cell Count 4.3 10^3/uL (4.8-10.8)
[2024-05-07 12:19] LABS: ALT (SGPT) 23 U/L (0-35); AST (SGOT) 28 U/L (14-36); Albumin 4.4 g/dl (3.5-5.0); Alkaline Phosphatase 106 U/L (38-126); Blood Urea Nitrogen 18 mg/dl (7-17); Calcium 9.9 mg/dl (8.4-10.2); Carbon Dioxide 28 mmol/L (22-30); Chloride 105 mmol/L (98-107); Glucose 131 mg/dl (70-99); HDL Cholesterol 44 mg/dl; LDL Cholesterol, Calculated 117 mg/dl; Potassium 5.1 mmol/L (3.5-5.1); Sodium 141 mmol/L (135-145); Total Bilirubin 0.8 mg/dl (0.2-1.3); Total Cholesterol 179 mg/dl (50-199); Total Protein 7.5 g/dl (6.3-8.2); Triglyceride 94 mg/dl (10-149); Very Low Density Lipoprotein 18 mg/dl (0-30); eGFR > 60.00
[2024-05-07 12:38] LABS: Microalbumin, Random Urine <0.6 mg/dl (0.6-1.7)
[2024-05-07 12:40] LABS: TSH 2.04 uIU/ml (0.47-4.68)
[2024-05-07 12:51] LABS: Glycohemoglobin (HgbA1c) 7.2 % (4.0-5.6)
[2024-05-07 13:20] LABS: Urine Squamous Cell >30 /LPF (Few)
[2024-05-07 13:22] LABS: Urine Amorphous Seen; Urine Bacteria Few (Negative); Urine Red Blood Cell 0-2 /HPF (0-2); Urine White Cell 0-2 /HPF (0-5)
== END ==
LOC: HWLAB 09:32
PROVIDERS: ATTENDING PHYSICIAN Internal Medicine
DX: E11.9 Type 2 diabetes mellitus without complications (principal); I10 Essential (primary) hypertension; K51.90 Ulcerative colitis, unspecified, without complications; K90.0 Celiac disease; D68.52 Prothrombin gene mutation; D75.839 Thrombocytosis, unspecified; E78.00 Pure hypercholesterolemia, unspecified; Z95.828 Presence of other vascular implants and grafts; R42 Dizziness and giddiness; Z76.89 Persons encountering health services in other specified circumstances
CPT/HCPCS: 36415; 80053; 80061; 81003; 81015; 82043; 82570; 83036; 84443; 85025

== ENCOUNTER → 2024-06-21 15:50 | Outpatient (REF) | payer MEDICARE, SELFPAY ==
[2024-06-21 17:38] LABS: Erythrocyte Sed Rate 14 mm/hour (0-20)
== END ==
LOC: REG 15:50
PROVIDERS: ATTENDING PHYSICIAN Internal Medicine
DX: G44.51 Hemicrania continua (principal)
CPT/HCPCS: 36415; 85652

== ENCOUNTER → 2024-07-31 08:23 | Outpatient (REF) | payer MEDICARE, SELFPAY ==
[2024-07-31 10:36] LABS: ALT (SGPT) 22 U/L (0-35); AST (SGOT) 27 U/L (14-36); Albumin 4.4 g/dl (3.5-5.0); Alkaline Phosphatase 96 U/L (38-126); Blood Urea Nitrogen 21 mg/dl (7-17); Carbon Dioxide 23 mmol/L (22-30); Chloride 106 mmol/L (98-107); Glucose 134 mg/dl (70-99); HDL Cholesterol 47 mg/dl; LDL Cholesterol, Calculated 102 mg/dl; Potassium 4.7 mmol/L (3.5-5.1); Sodium 142 mmol/L (135-145); Total Bilirubin 0.9 mg/dl (0.2-1.3); Total Cholesterol 168 mg/dl (50-199); Total Protein 7.1 g/dl (6.3-8.2); Triglyceride 96 mg/dl (10-149); Very Low Density Lipoprotein 19 mg/dl (0-30); eGFR > 60.00
== END ==
LOC: HWLAB 08:23
PROVIDERS: ATTENDING PHYSICIAN Nuclear Medicine Nuclear Cardiology; FAMILY PHYSICIAN Internal Medicine
DX: I10 Essential (primary) hypertension (principal); I25.10 Atherosclerotic heart disease of native coronary artery without angina pectoris; E78.5 Hyperlipidemia, unspecified
CPT/HCPCS: 36415; 80053; 80061

== ENCOUNTER → 2024-09-05 09:52 | Outpatient (REF) | payer MEDICARE, SELFPAY ==
[2024-09-05 13:17] LABS: Glycohemoglobin (HgbA1c) 6.9 % (4.0-5.6)
== END ==
LOC: HWLAB 09:52
PROVIDERS: ATTENDING PHYSICIAN Internal Medicine
DX: E11.9 Type 2 diabetes mellitus without complications (principal)
CPT/HCPCS: 36415; 83036

== ENCOUNTER → 2024-09-27 08:09 | Outpatient (REF) | payer MEDICARE, SELFPAY | LOC: HWWDC 08:09 | PROVIDERS: ATTENDING PHYSICIAN Internal Medicine; FAMILY PHYSICIAN Internal Medicine | DX: Z12.31 Encounter for screening mammogram for malignant neoplasm of breast (principal) | CPT/HCPCS: 77063; 77067 ==

== ENCOUNTER → 2024-11-15 10:23 | Outpatient (REF) | payer MEDICARE, SELFPAY ==
[2024-11-15 13:50] LABS: ALT (SGPT) 21 U/L (0-35); AST (SGOT) 26 U/L (14-36); Albumin 4.6 g/dl (3.5-5.0); Alkaline Phosphatase 104 U/L (38-126); Blood Urea Nitrogen 20 mg/dl (7-17); Calcium 10.2 mg/dl (8.4-10.2); Carbon Dioxide 26 mmol/L (22-30); Chloride 104 mmol/L (98-107); Glucose 147 mg/dl (70-99); HDL Cholesterol 49 mg/dl; LDL Cholesterol, Calculated 89 mg/dl; Potassium 5.3 mmol/L (3.5-5.1); Sodium 141 mmol/L (135-145); Total Bilirubin 0.4 mg/dl (0.2-1.3); Total Cholesterol 168 mg/dl (50-199); Total Protein 7.6 g/dl (6.3-8.2); Triglyceride 151 mg/dl (10-149); Very Low Density Lipoprotein 30 mg/dl (0-30); eGFR > 60.00
== END ==
LOC: HWLAB 10:23
PROVIDERS: ATTENDING PHYSICIAN Nuclear Medicine Nuclear Cardiology; FAMILY PHYSICIAN Internal Medicine
DX: E78.5 Hyperlipidemia, unspecified (principal); I10 Essential (primary) hypertension
CPT/HCPCS: 36415; 80053; 80061

== ENCOUNTER → 2024-11-20 09:52 | Outpatient (REF) | payer MEDICARE, SELFPAY ==
[2024-11-20 12:48] LABS: D-Dimer 0.76 ug/mlFEU (0.00-0.50)
== END ==
LOC: HWLAB 09:52
PROVIDERS: ATTENDING PHYSICIAN Internal Medicine Hematology & Oncology; FAMILY PHYSICIAN Internal Medicine; REFERRING PHYSICIAN Student in an Organized Health Care Education/Training Program
DX: D68.52 Prothrombin gene mutation (principal); Z86.711 Personal history of pulmonary embolism
CPT/HCPCS: 36415; 85379

== ENCOUNTER → 2024-11-26 13:30 | Outpatient (REF) | payer MEDICARE, SELFPAY | LOC: RCS 13:30 | PROVIDERS: ATTENDING PHYSICIAN Nuclear Medicine Nuclear Cardiology; FAMILY PHYSICIAN Internal Medicine | DX: I25.10 Atherosclerotic heart disease of native coronary artery without angina pectoris (principal) | CPT/HCPCS: 93306 ==

== ENCOUNTER → 2024-12-07 08:06 | Outpatient (REF) | payer MEDICARE, SELFPAY | LOC: PAVMRI 08:06 | PROVIDERS: ATTENDING PHYSICIAN Student in an Organized Health Care Education/Training Program; FAMILY PHYSICIAN Internal Medicine | DX: S80.11XA Contusion of right lower leg, initial encounter (principal) | CPT/HCPCS: 73718 ==

== ENCOUNTER 2025-01-15 06:16 | Day surgery (SDC) | payer MEDICARE, SELFPAY ==
[2025-01-15 07:55] LABS: Glucose - Point of Care 166 mg/dl (70-99)
== END 2025-01-15 09:29 | disposition home or self-care (01) ==
LOC: GI 06:16
PROVIDERS: ATTENDING PHYSICIAN Internal Medicine Gastroenterology; FAMILY PHYSICIAN Internal Medicine
DX: Z12.11 Encounter for screening for malignant neoplasm of colon (principal); K64.8 Other hemorrhoids; K57.30 Diverticulosis of large intestine without perforation or abscess without bleeding; D12.2 Benign neoplasm of ascending colon; Z86.0100 Personal history of colon polyps, unspecified
CPT/HCPCS: 45385; 88305; 82962

== ENCOUNTER → 2025-03-17 08:24 | Outpatient (REF) | payer MEDICARE, SELFPAY ==
[2025-03-17 10:45] LABS: ALT (SGPT) 31 U/L (0-35); AST (SGOT) 24 U/L (14-36); Albumin 4.7 g/dl (3.5-5.0); Alkaline Phosphatase 109 U/L (38-126); Blood Urea Nitrogen 24 mg/dl (7-17); Calcium 9.8 mg/dl (8.4-10.2); Carbon Dioxide 25 mmol/L (22-30); Chloride 107 mmol/L (98-107); Glucose 169 mg/dl (70-99); HDL Cholesterol 43 mg/dl; LDL Cholesterol, Calculated 106 mg/dl; Sodium 142 mmol/L (135-145); Total Bilirubin 0.9 mg/dl (0.2-1.3); Total Cholesterol 167 mg/dl (50-199); Total Protein 7.5 g/dl (6.3-8.2); Triglyceride 91 mg/dl (10-149); Very Low Density Lipoprotein 18 mg/dl (0-30); eGFR > 60.00
[2025-03-17 10:59] LABS: Microalbumin/creatinine Ratio 19.3 mg/g
[2025-03-17 11:20] LABS: Glycohemoglobin (HgbA1c) 7.6 % (4.0-5.6)
== END ==
LOC: HWLAB 08:24
PROVIDERS: ATTENDING PHYSICIAN Internal Medicine
DX: E11.9 Type 2 diabetes mellitus without complications (principal); E78.5 Hyperlipidemia, unspecified
CPT/HCPCS: 36415; 80053; 80061; 82043; 82570; 83036

== ENCOUNTER → 2025-03-19 07:17 | Outpatient (REF) | payer MEDICARE, SELFPAY ==
[2025-03-19 08:34] LABS: Potassium 5.6 mmol/L (3.5-5.1)
== END ==
LOC: REG 07:17
PROVIDERS: ATTENDING PHYSICIAN Internal Medicine
DX: E87.5 Hyperkalemia (principal)
CPT/HCPCS: 36415; 84132

== ENCOUNTER → 2025-04-10 11:40 | Outpatient (REF) | payer MEDICARE, SELFPAY | LOC: HWLAB 11:40 | PROVIDERS: ATTENDING PHYSICIAN Internal Medicine | DX: E87.5 Hyperkalemia (principal) | CPT/HCPCS: 36415; 84132 ==

== ENCOUNTER → 2025-04-30 08:52 | Outpatient (REF) | payer MEDICARE, SELFPAY ==
[2025-04-30 12:38] LABS: ALT (SGPT) 30 U/L (0-35); AST (SGOT) 26 U/L (14-36); Albumin 4.4 g/dl (3.5-5.0); Alkaline Phosphatase 87 U/L (38-126); Blood Urea Nitrogen 19 mg/dl (7-17); Carbon Dioxide 25 mmol/L (22-30); Chloride 107 mmol/L (98-107); Glucose 171 mg/dl (70-99); HDL Cholesterol 43 mg/dl; LDL Cholesterol, Calculated 116 mg/dl; Potassium 5.3 mmol/L (3.5-5.1); Sodium 141 mmol/L (135-145); Total Bilirubin 0.8 mg/dl (0.2-1.3); Total Cholesterol 185 mg/dl (50-199); Total Protein 7.4 g/dl (6.3-8.2); Triglyceride 131 mg/dl (10-149); Very Low Density Lipoprotein 26 mg/dl (0-30); eGFR > 60.00
== END ==
LOC: HWLAB 08:52
PROVIDERS: ATTENDING PHYSICIAN Nuclear Medicine Nuclear Cardiology; FAMILY PHYSICIAN Internal Medicine
DX: I10 Essential (primary) hypertension (principal); E78.5 Hyperlipidemia, unspecified
CPT/HCPCS: 36415; 80053; 80061

== ENCOUNTER → 2025-05-21 10:57 | Outpatient (REF) | payer MEDICARE, SELFPAY ==
[2025-05-21 16:12] LABS: Hematocrit 41.2 % (37.0-47.0); Hemoglobin 13.7 g/dL (12.0-16.0); Mean Corp Hgb Conc. 33.3 g/dL (33.0-37.0); Mean Corpuscular Volume 98.6 fL (81.0-99.0); Nucleated Red Blood Cells % 0 %; Platelet Count 513 10^3/uL (130-400); Red Cell Dist. Width 12.3 % (11.5-14.5)
[2025-05-21 16:15] LABS: ALT (SGPT) 20 U/L (0-35); AST (SGOT) 21 U/L (14-36); Albumin 4.6 g/dl (3.5-5.0); Alkaline Phosphatase 88 U/L (38-126); Blood Urea Nitrogen 26 mg/dl (7-17); Calcium 10.2 mg/dl (8.4-10.2); Carbon Dioxide 20 mmol/L (22-30); Chloride 107 mmol/L (98-107); Glucose 186 mg/dl (70-99); Iron 161 ug/dl (37-170); Potassium 4.7 mmol/L (3.5-5.1); Sodium 139 mmol/L (135-145); Total Protein 7.4 g/dl (6.3-8.2); eGFR > 60.00
[2025-05-21 16:24] LABS: Total Iron Binding Capacity 435 ug/dl (265-497)
[2025-05-21 16:52] LABS: Ferritin 33.3 ng/ml (11.1-264.0)
[2025-05-21 17:23] LABS: Folate 18.2 ng/ml (2.76-20); Vitamin B12 364 pg/ml (239-931)
== END ==
LOC: HWLAB 10:57
PROVIDERS: ATTENDING PHYSICIAN Internal Medicine Hematology & Oncology; FAMILY PHYSICIAN Internal Medicine
DX: D68.52 Prothrombin gene mutation (principal); Z86.711 Personal history of pulmonary embolism
CPT/HCPCS: 36415; 80053; 82607; 82728; 82746; 83540; 83550; 85025

== ENCOUNTER → 2025-07-04 11:15 | Outpatient (REF) | payer MEDICARE, SELFPAY ==
[2025-07-04 15:12] LABS: Albumin 4.3 g/dl (3.5-5.0); Blood Urea Nitrogen 22 mg/dl (7-17); Calcium 9.8 mg/dl (8.4-10.2); Carbon Dioxide 23 mmol/L (22-30); Chloride 108 mmol/L (98-107); Glucose 190 mg/dl (70-99); Potassium 4.8 mmol/L (3.5-5.1); Sodium 138 mmol/L (135-145); eGFR > 60.00
== END ==
LOC: HWLAB 11:15
PROVIDERS: ATTENDING PHYSICIAN Internal Medicine
DX: I10 Essential (primary) hypertension (principal)
CPT/HCPCS: 36415; 80069

== ENCOUNTER → 2025-07-24 09:11 | Outpatient (REF) | payer MEDICARE, SELFPAY ==
[2025-07-24 13:09] LABS: ALT (SGPT) 18 U/L (0-35); AST (SGOT) 20 U/L (14-36); Albumin 4.4 g/dl (3.5-5.0); Alkaline Phosphatase 88 U/L (38-126); Blood Urea Nitrogen 22 mg/dl (7-17); Calcium 9.7 mg/dl (8.4-10.2); Carbon Dioxide 27 mmol/L (22-30); Chloride 106 mmol/L (98-107); Glucose 122 mg/dl (70-99); HDL Cholesterol 36 mg/dl; LDL Cholesterol, Calculated 139 mg/dl; Lipase 80 U/L (23-300); Potassium 5.3 mmol/L (3.5-5.1); Sodium 140 mmol/L (135-145); Total Protein 7.3 g/dl (6.3-8.2); Very Low Density Lipoprotein 26 mg/dl (0-30); eGFR > 60.00
[2025-07-24 13:35] LABS: Amylase 70 U/L (30-110)
[2025-07-24 13:46] LABS: Glycohemoglobin (HgbA1c) 8.4 % (4.0-5.6)
== END ==
LOC: HWLAB 09:11
PROVIDERS: ATTENDING PHYSICIAN Internal Medicine
DX: I10 Essential (primary) hypertension (principal); E11.9 Type 2 diabetes mellitus without complications; E11.319 Type 2 diabetes mellitus with unspecified diabetic retinopathy without macular edema; H35.049 Retinal micro-aneurysms, unspecified, unspecified eye; K51.90 Ulcerative colitis, unspecified, without complications; D68.52 Prothrombin gene mutation; D47.3 Essential (hemorrhagic) thrombocythemia; E78.00 Pure hypercholesterolemia, unspecified; I25.10 Atherosclerotic heart disease of native coronary artery without angina pectoris; Z95.5 Presence of coronary angioplasty implant and graft; R10.10 Upper abdominal pain, unspecified; E04.1 Nontoxic single thyroid nodule; Z00.00 Encounter for general adult medical examination without abnormal findings
CPT/HCPCS: 36415; 80053; 80061; 82150; 83036; 83690; 84443

== ENCOUNTER → 2025-08-08 09:30 | Outpatient (REF) | payer MEDICARE, SELFPAY | LOC: HWLAB 09:30 | PROVIDERS: ATTENDING PHYSICIAN Internal Medicine Gastroenterology; FAMILY PHYSICIAN Internal Medicine | DX: K51.30 Ulcerative (chronic) rectosigmoiditis without complications (principal) | CPT/HCPCS: 83993 ==

== ENCOUNTER → 2025-08-13 09:23 | Outpatient (REF) | payer MEDICARE, SELFPAY | LOC: HWRAD 09:23 | PROVIDERS: ATTENDING PHYSICIAN Internal Medicine | DX: E11.9 Type 2 diabetes mellitus without complications (principal); I25.10 Atherosclerotic heart disease of native coronary artery without angina pectoris; K51.90 Ulcerative colitis, unspecified, without complications; E04.1 Nontoxic single thyroid nodule; R10.10 Upper abdominal pain, unspecified | CPT/HCPCS: 76536; 76700 ==

== ENCOUNTER → 2025-10-28 09:12 | Outpatient (REF) | payer MEDICARE, SELFPAY ==
[2025-10-28 10:01] LABS: Hematocrit 40.7 % (37.0-47.0); Hemoglobin 13.1 g/dL (12.0-16.0); Mean Corp Hgb Conc. 32.2 g/dL (33.0-37.0); Mean Corpuscular Volume 100.7 fL (81.0-99.0); Nucleated Red Blood Cells % 0 %; Platelet Count 413 10^3/uL (130-400); Red Cell Dist. Width 13.0 % (11.5-14.5)
[2025-10-28 10:12] LABS: D-Dimer 0.80 ug/mlFEU (0.00-0.50)
[2025-10-28 10:28] LABS: ALT (SGPT) 19 U/L (0-35); AST (SGOT) 21 U/L (14-36); Albumin 4.5 g/dl (3.5-5.0); Alkaline Phosphatase 111 U/L (38-126); Blood Urea Nitrogen 19 mg/dl (7-17); Calcium 9.6 mg/dl (8.4-10.2); Carbon Dioxide 25 mmol/L (22-30); Chloride 107 mmol/L (98-107); Glucose 191 mg/dl (70-99); Iron 127 ug/dl (37-170); Potassium 5.1 mmol/L (3.5-5.1); Sodium 139 mmol/L (135-145); Total Protein 8.0 g/dl (6.3-8.2); eGFR > 60.00
[2025-10-28 10:38] LABS: Total Iron Binding Capacity 447 ug/dl (265-497)
[2025-10-28 10:59] LABS: Ferritin 21.4 ng/ml (11.1-264.0)
[2025-10-28 11:31] LABS: Folate 9.7 ng/ml (2.76-20); Vitamin B12 568 pg/ml (239-931)
== END ==
LOC: REG 09:12
PROVIDERS: ATTENDING PHYSICIAN Internal Medicine Hematology & Oncology; FAMILY PHYSICIAN Internal Medicine; REFERRING PHYSICIAN Nuclear Medicine Nuclear Cardiology
DX: D68.52 Prothrombin gene mutation (principal); Z86.711 Personal history of pulmonary embolism
CPT/HCPCS: 36415; 80053; 82607; 82728; 82746; 83540; 83550; 85025; 85379

== ENCOUNTER → 2025-10-31 08:31 | Outpatient (REF) | payer MEDICARE, SELFPAY ==
[2025-10-31 10:04] LABS: Albumin 4.4 g/dl (3.5-5.0); Blood Urea Nitrogen 22 mg/dl (7-17); Calcium 9.8 mg/dl (8.4-10.2); Carbon Dioxide 23 mmol/L (22-30); Chloride 106 mmol/L (98-107); Glucose 146 mg/dl (70-99); Potassium 5.2 mmol/L (3.5-5.1); Sodium 140 mmol/L (135-145); eGFR > 60.00
== END ==
LOC: REG 08:31
PROVIDERS: ATTENDING PHYSICIAN Internal Medicine; FAMILY PHYSICIAN Internal Medicine
DX: E87.5 Hyperkalemia (principal)
CPT/HCPCS: 36415; 80069; 82570; 83930; 83935; 84133; 84156

== ENCOUNTER → 2025-11-03 07:29 | Outpatient (REF) | payer MEDICARE, SELFPAY | LOC: PAVMRI 07:29 | PROVIDERS: ATTENDING PHYSICIAN Internal Medicine | DX: K86.2 Cyst of pancreas (principal) | CPT/HCPCS: 74183; A9575 ==